=== PATIENT | male | born 1940 | race Caucasian/White ===

== ENCOUNTER 2022-06-19 16:45 | Inpatient (IN) | payer MEDICARE, OTHER ==
[~2022-06-19] VITALS: Ht 182.9 cm; Wt 106.0 kg
[2022-06-19] MEDS: HEPARIN SOD,PORK IN 0.45% NACL 250 ML IV SCH (00:05)
[2022-06-19 17:30] VITALS: BP 162/97
[2022-06-19] MEDS ORDERED: VALS160T2 PO (17:30)
[2022-06-19 18:00] VITALS: BP 168/91
[2022-06-19] MEDS ORDERED: heparin 10,000 units/1 ML INJ IV ONE (18:35)
[2022-06-19] MEDS ORDERED: amiodarone 150mg/dext, iso-os 100 ML IV ONE (18:35)
[2022-06-19] MEDS ORDERED: heparin 10,000 units/1 ML INJ IV PRN (18:35)
[2022-06-19] MEDS ORDERED: potassium CL 10mEq/100ml bag 100 ML IV PRN (18:40)
[2022-06-19] MEDS ORDERED: POTASSIUM BICARB 20meq eff tab 20 MEQ TABLET.EFF PO PRN (18:40)
[2022-06-19] MEDS ORDERED: magnesium 4gm in 100ml NS 100 ML IV PRN (18:40)
[2022-06-19] MEDS ORDERED: bisacodyl 10mg suppository rectal RC PRN (18:40)
[2022-06-19] MEDS ORDERED: magnesium hydroxide 30ml (MOM) UD suspension PO PRN (18:40)
[2022-06-19] MEDS ORDERED: mag hydrox/Alum hydrox/simeth 30ml oral suspension PO PRN (18:40)
[2022-06-19] MEDS ORDERED: morphine 2 MG/ML inj. syringe IV PRN (18:40)
[2022-06-19] MEDS ORDERED: magnesium 2GM in 50ml NS 50 ML IV PRN (18:40)
[2022-06-19] MEDS ORDERED: magnesium Cl slow-release 64mg tablet PO PRN (18:40)
[2022-06-19] MEDS ORDERED: acetaminophen 650mg rectal suppository RC PRN (18:40)
[2022-06-19] MEDS ORDERED: PERFLUTREN PROTEIN-A MICROSPHR (Optison) 0.22 MG/ML 3ML VIAL IV ONE (18:40)
[2022-06-19] MEDS ORDERED: HYDROcodone/acetaminophen 5mg/325mg tablet PO PRN (18:40)
[2022-06-19] MEDS ORDERED: acetaminophen 325mg tablet PO PRN ×2 (18:40)
[2022-06-19] MEDS ORDERED: diphenhydrAMINE 25mg capsule PO PRN (18:40)
[2022-06-19] MEDS ORDERED: ondansetron/PF 4mg/2ml inj IV PRN (18:40)
--- NOTE | 2022-06-19 18:44 | NUR ---
Problems reprioritized. Patient report given, questions answered & plan of care reviewed with Pat RN, patient stable at transfer of care.
[2022-06-19] MEDS ORDERED: LATA2.5D14 EACHEYE (19:50)
[2022-06-19] MEDS ORDERED: OXYC1TAB17 PO (19:50)
[2022-06-19] MEDS ORDERED: FURO40TA4 PO (19:50)
[2022-06-19] MEDS ORDERED: METF-1203 (19:50)
[2022-06-19] MEDS ORDERED: DORZ10DR10 EACHEYE (19:50)
[2022-06-19] MEDS ORDERED: BRIM5DRO16 EACHEYE (19:50)
[2022-06-19] MEDS ORDERED: ATEN25TA72 PO (19:51)
[2022-06-19] MEDS ORDERED: ATEN50TA PO (19:52)
[2022-06-19] MEDS ORDERED: MINO10TA16 PO (19:53)
[2022-06-19] MEDS ORDERED: COLC0.6T72 PO (19:53)
[2022-06-19 20:00] VITALS: BP 108/47
[2022-06-19] MEDS: K and/or MAG REPLACEMENT MC SCH (20:00)
[2022-06-19] MEDS: docusate sod 100mg capsule PO SCH (20:00)
[2022-06-19 20:22] LABS: BASOPHILS # (AUTO) 0.1 X10'3 (0-0.2); BASOPHILS % (AUTO) 0.9 % (0-1); EOSINOPHILS # (AUTO) 0.2 X10'3 (0-0.9); HEMATOCRIT 38.3 % (42.0-52.0); HEMOGLOBIN 12.8 g/dl (14.0-17.9); LYMPHOCYTES # (AUTO) 3.2 X10'3 (1.1-4.8); LYMPHOCYTES % (AUTO) 31.4 % (21-51); MEAN CORPUSCULAR HEMOGLOBIN 28.2 PG (27.0-31.0); MEAN CORPUSCULAR HGB CONC 33.4 g/dL (33.0-36.5); MEAN CORPUSCULAR VOLUME 84.4 FL (78-98); MEAN PLATELET VOLUME 8.1 FL (7.4-10.4); MONOCYTES # (AUTO) 0.7 X10'3 (0-0.9); MONOCYTES % (AUTO) 7.1 % (2-12); NEUTROPHILS % (AUTO) 58.6 % (42-75); PLATELET COUNT 206 X10'3 (140-440); RED BLOOD COUNT 4.53 X10'6 (4.70-6.10); RED CELL DISTRIBUTION WIDTH 14.3 % (11.5-14.5); WHITE BLOOD COUNT 10.2 X10'3 (4.5-11.0)
[2022-06-19 20:44] LABS: APTT 27 SECONDS (22-32)
[2022-06-19 20:54] LABS: ALANINE AMINOTRANSFERASE 18 U/L (12-78); ALBUMIN 3.5 G/DL (3.4-5.0); ALBUMIN/GLOBULIN RATIO 0.9 (1.1-1.5); ALKALINE PHOSPHATASE 102 IU/L (46-116); ANION GAP 6 (8-16); ASPARTATE AMINO TRANSFERASE 15 U/L (10-37); BILIRUBIN,TOTAL 0.7 MG/DL (0.1-1.0); BLOOD UREA NITROGEN 23 MG/DL (7-18); CALCIUM 8.4 MG/DL (8.5-10.1); CHLORIDE 104 MMOL/L (99-107); CREATININE 1.28 MG/DL (0.60-1.10); GLUCOSE 154 MG/DL (70-104); PHOSPHORUS 2.7 MG/DL (2.3-4.5); POTASSIUM 3.8 MMOL/L (3.5-5.1); SODIUM 138 MMOL/L (135-145); TOTAL CARBON DIOXIDE 28.2 MMOL/L (24-32); TOTAL PROTEIN 7.4 G/DL (6.4-8.2); eGFR 54 ML/MIN
[2022-06-19 20:56] LABS: HEMOGLOBIN A1C 7.2 % (4.5-6.2)
[2022-06-19] MEDS: morphine 2 MG/ML inj. syringe IV PRN (21:05)
[2022-06-19] MEDS: HYDROcodone/acetaminophen 10/325mg tab PO PRN (21:12)
[2022-06-19] MEDS: furosemide 40mg/4ml inj IV SCH (21:29)
[2022-06-19] MEDS ORDERED: dextrose 50%-water 50ml dispensing syringe IV PRN ×2 (21:50)
[2022-06-19] MEDS ORDERED: MESSAGE TO PHARMACY PO ONE (21:50)
[2022-06-19] MEDS ORDERED: glucagon, human recombinant 1mg kit SUBCUT PRN (21:50)
[2022-06-19] MEDS ORDERED: DEXTROSE 15 GM of carb/4 tabs (each vial/BOTTLE has 4 tablets) PO PRN ×2 (21:50)
[2022-06-19] MEDS ORDERED: insulin Lispro (HumaLOG) vial - multi-dose SQ SCH (21:50)
[2022-06-20] VITALS (13 sets, daily range): BP systolic 134–161; BP diastolic 70–108
[2022-06-20] MEDS: amiodarone/D5 360MG/200ML BAG 200 ML IV SCH ×4 (00:33→12:47)
[2022-06-20 06:50] LABS: BASOPHILS # (AUTO) 0.1 X10'3 (0-0.2); BASOPHILS % (AUTO) 0.9 % (0-1); EOSINOPHILS # (AUTO) 0.2 X10'3 (0-0.9); HEMATOCRIT 36.8 % (42.0-52.0); HEMOGLOBIN 12.5 g/dl (14.0-17.9); LYMPHOCYTES % (AUTO) 30.1 % (21-51); MEAN CORPUSCULAR VOLUME 85.3 FL (78-98); MEAN PLATELET VOLUME 8.2 FL (7.4-10.4); MONOCYTES # (AUTO) 0.8 X10'3 (0-0.9); MONOCYTES % (AUTO) 8.4 % (2-12); NEUTROPHILS # (AUTO) 5.9 X10'3 (1.8-7.7); NEUTROPHILS % (AUTO) 58.6 % (42-75); PLATELET COUNT 207 X10'3 (140-440); RED BLOOD COUNT 4.32 X10'6 (4.70-6.10); RED CELL DISTRIBUTION WIDTH 14.5 % (11.5-14.5)
[2022-06-20 07:15] LABS: ALANINE AMINOTRANSFERASE 10 U/L (12-78); ALBUMIN 3.3 G/DL (3.4-5.0); ALBUMIN/GLOBULIN RATIO 0.8 (1.1-1.5); ALKALINE PHOSPHATASE 94 IU/L (46-116); ANION GAP 6 (8-16); ASPARTATE AMINO TRANSFERASE 16 U/L (10-37); BILIRUBIN,TOTAL 0.5 MG/DL (0.1-1.0); BLOOD UREA NITROGEN 22 MG/DL (7-18); BUN/CREATININE RATIO 17.6 (5.4-32.0); CHLORIDE 106 MMOL/L (99-107); CREATININE 1.25 MG/DL (0.60-1.10); GLUCOSE 120 MG/DL (70-104); POTASSIUM 3.6 MMOL/L (3.5-5.1); SODIUM 139 MMOL/L (135-145); TOTAL CARBON DIOXIDE 27.1 MMOL/L (24-32); TOTAL PROTEIN 7.2 G/DL (6.4-8.2); eGFR 55 ML/MIN
[2022-06-20 07:16] LABS: CHOL/HDL RATIO 4.2 (0.00-4.99); CHOLESTEROL 97 MG/DL (0-200); HDL CHOLESTEROL 23 MG/DL (35-60); LDL CHOLESTEROL 56 MG/DL (50-100); MAGNESIUM 1.9 MG/DL (1.5-2.4); PHOSPHORUS 3.1 MG/DL (2.3-4.5); TRIGLYCERIDES 107 MG/DL (20-135)
[2022-06-20] MEDS: HYDROcodone/acetaminophen 10/325mg tab PO PRN (07:28)
[2022-06-20] MEDS: K and/or MAG REPLACEMENT MC SCH ×2 (08:00→20:00)
[2022-06-20] MEDS: atenolol 50mg tablet PO SCH ×2 (08:00→20:00)
[2022-06-20] MEDS: docusate sod 100mg capsule PO SCH ×2 (08:00→21:08)
--- NOTE | 2022-06-20 08:32 | NUR ---
Per telephone with Dr Senior: k/mg replc 02/22; losartan add comment to hold for sbp less than 100; add mucomyst 600 BID first dose now; sodium bicarb 3 amp in 11/24 NS @ 100; PER pharmacy sod bicab only in D5W - will contact Doc to review order. Also, ok to resume all home meds; pt will be having a cardioversion and heart cath around 1200. Need 18g PIV in R AC. Will implement orders
--- NOTE | 2022-06-20 08:35 | NUR ---
Per Dr Senior - change hep gtt to 1000 units/hr
[2022-06-20] MEDS: sodium bicarbonate (8.4%) inj. 150 MEQ in sodium chloride 0.45% 1,000 ML IV SCH ×2 (08:45→20:15)
[2022-06-20] MEDS: brimonidine 0.2% 5 ML ophthalmic drops EACHEYE SCH ×2 (10:22→21:05)
[2022-06-20] MEDS: dorzolamide/timolol (Cosopt) ophthalmic drops 10ml bottle EACHEYE SCH ×2 (10:23→21:05)
[2022-06-20] MEDS: losartan 50mg tablet PO SCH (10:25)
[2022-06-20] MEDS: furosemide 40mg/4ml inj IV SCH ×2 (10:26→21:07)
[2022-06-20] MEDS: acetylcysteine 200 MG/ml 4ml vial PO SCH ×2 (10:34→21:06)
--- NOTE | 2022-06-20 11:27 | NUR ---
DM Consult: Pt hx T2DM A1C 7.2% appropriate given age. Written DM ed w/ RD contact information place in pt chart. Addendum: 06/20/22 at [address] Amended: Links added.
[2022-06-20] MEDS ORDERED: nitroGLYCERIN-Tridil 50MG/D5W 250 ML IV ONE (11:32)
[2022-06-20] MEDS ORDERED: fentaNYL/PF 50MCG/1 ML 2ML syringe ONE ×2 (11:33→11:36)
[2022-06-20] MEDS ORDERED: heparin 1,000unit/ml 10ml vial 10 ML ONE (11:33)
[2022-06-20] MEDS ORDERED: LIDOcaine 1% 30ml preserv. free vial ONE (11:33)
[2022-06-20] MEDS ORDERED: iohexol 350MG/ML 100ml bottle IV ONE (11:33)
[2022-06-20] MEDS ORDERED: verapamil 2.5 mg/ml inj IV ONE (11:33)
[2022-06-20] MEDS ORDERED: midazolam 1 mg/ML 2ml injection ONE ×2 (11:33→11:36)
[2022-06-20] MEDS ORDERED: LIDOcaine 1%/PF 5ML 10 MG/ML VIAL ONE (11:45)
[2022-06-20] MEDS ORDERED: amiodarone 150mg/dext, iso-os 0 ML IV ONE (13:08)
[2022-06-20] MEDS ORDERED: amiodarone 50MG/ML inj IV ONE (13:08)
[2022-06-20] MEDS ORDERED: ondansetron 4mg rapidly disintigrating tab PO PRN (14:00)
--- NOTE | 2022-06-20 14:23 | NUR ---
Patient came back from manager cardiac cath, 5 visitors in room.
--- NOTE | 2022-06-20 14:43 | NUR ---
Message: [phone]. Vlad Ozuna. Fam in room, would like to speak with you. Luna Copeland [phone] Paged Dr Cagle Transaction number: [phone]
[2022-06-20] MEDS ORDERED: furosemide 40mg/4ml inj IV ONE (14:45)
[2022-06-20] MEDS: POTASSIUM BICARB 20meq eff tab 20 MEQ TABLET.EFF PO PRN ×2 (15:09→22:00)
[2022-06-20] MEDS: morphine 2 MG/ML inj. syringe IV PRN ×2 (15:59→21:50)
--- NOTE | 2022-06-20 18:30 | NUR ---
Problems reprioritized. Patient report given, questions answered & plan of care reviewed with Lorenzo RN & ANTONINA Kwan.
--- NOTE | 2022-06-20 18:47 | NUR ---
Patient in room PCU 3028. I have received report from nica SARKAR and had the opportunity to ask questions and assume patient care.
[2022-06-20] MEDS: HEPARIN SOD,PORK IN 0.45% NACL 250 ML IV SCH (19:35)
[2022-06-20] MEDS: apixaban 5mg tablet PO SCH (20:00)
[2022-06-20] MEDS: insulin glargine (Lantus) pen - multi-dose SQ SCH (21:00)
--- NOTE | 2022-06-20 21:00 | NUR ---
Eliquis PO not admin as IV Heparin cont. to infuse as ordered per Dr. Senior. Will start PO Eliquis this am as IV Heparin will be infused and completed.
[2022-06-20] MEDS: latanoprost 0.005% 2.5ml ophthalmic drops EACHEYE SCH (21:05)
[2022-06-20] MEDS: minoxidil 2.5mg tablet PO SCH (21:13)
[2022-06-21 02:00] VITALS: BP 98/58
[2022-06-21] MEDS: POTASSIUM BICARB 20meq eff tab 20 MEQ TABLET.EFF PO PRN (02:25)
[2022-06-21] MEDS: morphine 2 MG/ML inj. syringe IV PRN ×2 (03:15→15:11)
--- NOTE | 2022-06-21 04:20 | NUR ---
Patient right radial cath inserted area deflation was completed at 19:00 PM, Tegaderm dressing was applied on, it is dry, clean, intact, cath inserted site no S/S of bleeding/infection, will continue to closely monitor.
[2022-06-21 05:48] VITALS: BP 113/67
[2022-06-21 06:00] VITALS: BP 112/57
[2022-06-21 06:16] LABS: BASOPHILS # (AUTO) 0.1 X10'3 (0-0.2); BASOPHILS % (AUTO) 0.6 % (0-1); EOSINOPHILS # (AUTO) 0.1 X10'3 (0-0.9); EOSINOPHILS % (AUTO) 1.5 % (0-6); HEMATOCRIT 37.2 % (42.0-52.0); HEMOGLOBIN 12.5 g/dl (14.0-17.9); LYMPHOCYTES # (AUTO) 2.8 X10'3 (1.1-4.8); LYMPHOCYTES % (AUTO) 29.7 % (21-51); MEAN CORPUSCULAR HEMOGLOBIN 28.8 PG (27.0-31.0); MEAN CORPUSCULAR HGB CONC 33.6 g/dL (33.0-36.5); MEAN CORPUSCULAR VOLUME 85.7 FL (78-98); MEAN PLATELET VOLUME 8.4 FL (7.4-10.4); MONOCYTES # (AUTO) 0.7 X10'3 (0-0.9); MONOCYTES % (AUTO) 7.6 % (2-12); NEUTROPHILS # (AUTO) 5.8 X10'3 (1.8-7.7); NEUTROPHILS % (AUTO) 60.6 % (42-75); PLATELET COUNT 208 X10'3 (140-440); RED BLOOD COUNT 4.34 X10'6 (4.70-6.10); RED CELL DISTRIBUTION WIDTH 14.6 % (11.5-14.5); WHITE BLOOD COUNT 9.6 X10'3 (4.5-11.0)
[2022-06-21 06:28] LABS: ALANINE AMINOTRANSFERASE 11 U/L (12-78); ALBUMIN 3.2 G/DL (3.4-5.0); ALBUMIN/GLOBULIN RATIO 0.8 (1.1-1.5); ALKALINE PHOSPHATASE 96 IU/L (46-116); ANION GAP 8 (8-16); ASPARTATE AMINO TRANSFERASE 13 U/L (10-37); BILIRUBIN,TOTAL 0.8 MG/DL (0.1-1.0); BLOOD UREA NITROGEN 23 MG/DL (7-18); BUN/CREATININE RATIO 19.5 (5.4-32.0); CALCIUM 8.3 MG/DL (8.5-10.1); CHLORIDE 104 MMOL/L (99-107); CREATININE 1.18 MG/DL (0.60-1.10); GLUCOSE 121 MG/DL (70-104); MAGNESIUM 1.9 MG/DL (1.5-2.4); PHOSPHORUS 2.5 MG/DL (2.3-4.5); POTASSIUM 3.9 MMOL/L (3.5-5.1); SODIUM 142 MMOL/L (135-145); TOTAL PROTEIN 7.2 G/DL (6.4-8.2); eGFR 59 ML/MIN
--- NOTE | 2022-06-21 06:54 | NUR ---
Problems reprioritized. Patient report given, questions answered & plan of care reviewed with Althea SARKAR.
[2022-06-21] MEDS: K and/or MAG REPLACEMENT MC SCH ×2 (08:00→20:00)
[2022-06-21] MEDS: acetylcysteine 200 MG/ml 4ml vial PO SCH ×2 (08:00→21:31)
[2022-06-21] MEDS: docusate sod 100mg capsule PO SCH ×2 (08:00→21:30)
[2022-06-21] MEDS: furosemide 40mg/4ml inj IV SCH ×2 (09:03→21:29)
[2022-06-21] MEDS: apixaban 5mg tablet PO SCH ×2 (09:03→21:34)
[2022-06-21] MEDS: losartan 50mg tablet PO SCH (09:04)
[2022-06-21] MEDS: atenolol 50mg tablet PO SCH ×2 (09:15→21:33)
[2022-06-21] MEDS ORDERED: potassium Cl 20 mEq SR tablet PO STA (09:43)
[2022-06-21] MEDS ORDERED: furosemide 40mg/4ml inj IV ONE (09:45)
[2022-06-21] MEDS: minoxidil 2.5mg tablet PO SCH ×2 (10:34→21:34)
[2022-06-21] MEDS: brimonidine 0.2% 5 ML ophthalmic drops EACHEYE SCH ×2 (10:36→21:28)
[2022-06-21] MEDS: dorzolamide/timolol (Cosopt) ophthalmic drops 10ml bottle EACHEYE SCH ×2 (10:37→21:28)
[2022-06-21 11:00] VITALS: BP 119/73
[2022-06-21] MEDS ORDERED: triamcinolone acetonide 40mg/ml inj IM ONE (11:30)
[2022-06-21] MEDS: colchicine 0.6mg tablet PO PRN ×2 (12:44→21:30)
[2022-06-21 18:00] VITALS: BP 115/61
--- NOTE | 2022-06-21 18:15 | NUR ---
Got report from LIAM Oh RN, patient is lying in bed without uncomfortable, call light is on reach.
--- NOTE | 2022-06-21 18:58 | NUR ---
Patient in room PCU 3028. I have received report from Althea SARKAR and had the opportunity to ask questions and assume patient care.
[2022-06-21] MEDS: insulin glargine (Lantus) pen - multi-dose SQ SCH (21:00)
[2022-06-21] MEDS: latanoprost 0.005% 2.5ml ophthalmic drops EACHEYE SCH (21:28)
[2022-06-21] MEDS: HYDROcodone/acetaminophen 10/325mg tab PO PRN (21:45)
[2022-06-21 22:00] VITALS: BP 130/79
[2022-06-22] MEDS: morphine 2 MG/ML inj. syringe IV PRN ×2 (00:29→10:36)
[2022-06-22 02:00] VITALS: BP 94/56
[2022-06-22 06:00] VITALS: BP 141/82
[2022-06-22 06:52] LABS: BASOPHILS # (AUTO) 0.1 X10'3 (0-0.2); BASOPHILS % (AUTO) 0.7 % (0-1); EOSINOPHILS # (AUTO) 0.1 X10'3 (0-0.9); EOSINOPHILS % (AUTO) 1.5 % (0-6); HEMATOCRIT 40.4 % (42.0-52.0); HEMOGLOBIN 13.6 g/dl (14.0-17.9); LYMPHOCYTES # (AUTO) 2.5 X10'3 (1.1-4.8); MEAN CORPUSCULAR HEMOGLOBIN 28.8 PG (27.0-31.0); MEAN CORPUSCULAR HGB CONC 33.6 g/dL (33.0-36.5); MEAN CORPUSCULAR VOLUME 85.6 FL (78-98); MEAN PLATELET VOLUME 8.5 FL (7.4-10.4); MONOCYTES # (AUTO) 0.7 X10'3 (0-0.9); MONOCYTES % (AUTO) 7.5 % (2-12); NEUTROPHILS % (AUTO) 63.3 % (42-75); PLATELET COUNT 229 X10'3 (140-440); RED BLOOD COUNT 4.72 X10'6 (4.70-6.10); RED CELL DISTRIBUTION WIDTH 14.4 % (11.5-14.5); WHITE BLOOD COUNT 9.4 X10'3 (4.5-11.0)
--- NOTE | 2022-06-22 07:02 | NUR ---
Problems reprioritized. Patient report given, questions answered & plan of care reviewed with Althea SARKAR.
[2022-06-22 07:09] LABS: ALANINE AMINOTRANSFERASE 11 U/L (12-78); ALBUMIN 3.5 G/DL (3.4-5.0); ALBUMIN/GLOBULIN RATIO 0.8 (1.1-1.5); ALKALINE PHOSPHATASE 105 IU/L (46-116); ANION GAP 10 (8-16); ASPARTATE AMINO TRANSFERASE 14 U/L (10-37); BILIRUBIN,TOTAL 0.8 MG/DL (0.1-1.0); BLOOD UREA NITROGEN 19 MG/DL (7-18); BUN/CREATININE RATIO 17.1 (5.4-32.0); CHLORIDE 102 MMOL/L (99-107); CREATININE 1.11 MG/DL (0.60-1.10); GLUCOSE 131 MG/DL (70-104); MAGNESIUM 2.1 MG/DL (1.5-2.4); PHOSPHORUS 3.1 MG/DL (2.3-4.5); POTASSIUM 4.1 MMOL/L (3.5-5.1); SODIUM 141 MMOL/L (135-145); TOTAL CARBON DIOXIDE 29.3 MMOL/L (24-32); TOTAL PROTEIN 7.8 G/DL (6.4-8.2); eGFR 64 ML/MIN
[2022-06-22] MEDS: apixaban 5mg tablet PO SCH (08:55)
[2022-06-22] MEDS: losartan 50mg tablet PO SCH (08:56)
[2022-06-22] MEDS: atenolol 50mg tablet PO SCH (08:59)
[2022-06-22] MEDS: furosemide 40mg/4ml inj IV SCH (09:55)
[2022-06-22] MEDS: brimonidine 0.2% 5 ML ophthalmic drops EACHEYE SCH (09:55)
[2022-06-22] MEDS: dorzolamide/timolol (Cosopt) ophthalmic drops 10ml bottle EACHEYE SCH (09:55)
[2022-06-22 11:00] VITALS: BP 112/62
[2022-06-22] MEDS ORDERED: APIX5TAB3 PO (13:38)
[2022-06-22] MEDS ORDERED: ZAR2.5T PO (13:38)
[2022-06-22] MEDS ORDERED: FURO-150 PO (13:40)
[2022-06-23 06:17] LABS: ISTAT Hct MIX 38 %PCV (42-52); ISTAT O2 SATURATION MIX VENOUS 53 % (60-80); ISTAT SOURCE BLNK
[2022-06-23 06:17] LABS: ISTAT HGB ART 12.6 g/dl (14.0-18.0); ISTAT Hct ART 37 %PCV (42-52); ISTAT O2 SATURATION ARTERIAL 96 % (95-98); ISTAT SOURCE BLNK
== END 2022-06-22 14:58 | disposition home or self-care (01) | DRG 286 ==
LOC: PCU 3S 16:45
PROVIDERS: ADMIT Internal Medicine Cardiovascular Disease; ATTEND Internal Medicine Cardiovascular Disease
PROC: 4A023N8 Measurement of Cardiac Sampling and Pressure, Bilateral, Percutaneous Approach (ICD-10-PCS; principal; 2022-06-20)
PROC: B24CZZ4 Ultrasonography of Pericardium, Transesophageal (ICD-10-PCS; 2022-06-20)
PROC: 5A2204Z Restoration of Cardiac Rhythm, Single (ICD-10-PCS; 2022-06-20)
PROC: B2111ZZ Fluoroscopy of Multiple Coronary Arteries using Low Osmolar Contrast (ICD-10-PCS; 2022-06-20)
PROC: B2151ZZ Fluoroscopy of Left Heart using Low Osmolar Contrast (ICD-10-PCS; 2022-06-20)
DX: I13.0 Hypertensive heart and chronic kidney disease with heart failure and stage 1 through stage 4 chronic kidney disease, or unspecified chronic kidney disease (principal); I50.33 Acute on chronic diastolic (congestive) heart failure; N17.9 Acute kidney failure, unspecified; I48.92 Unspecified atrial flutter; I48.0 Paroxysmal atrial fibrillation; I25.10 Atherosclerotic heart disease of native coronary artery without angina pectoris; J44.9 Chronic obstructive pulmonary disease, unspecified; E11.22 Type 2 diabetes mellitus with diabetic chronic kidney disease; E78.5 Hyperlipidemia, unspecified; M19.90 Unspecified osteoarthritis, unspecified site; I08.1 Rheumatic disorders of both mitral and tricuspid valves; R00.1 Bradycardia, unspecified; R14.0 Abdominal distension (gaseous); G47.33 Obstructive sleep apnea (adult) (pediatric); I27.29 Other secondary pulmonary hypertension; I27.81 Cor pulmonale (chronic); M10.9 Gout, unspecified; N18.9 Chronic kidney disease, unspecified; Z80.3 Family history of malignant neoplasm of breast; Z82.0 Family history of epilepsy and other diseases of the nervous system; Z87.891 Personal history of nicotine dependence; Z86.79 Personal history of other diseases of the circulatory system; Z90.49 Acquired absence of other specified parts of digestive tract; Z88.5 Allergy status to narcotic agent; Z88.8 Allergy status to other drugs, medicaments and biological substances; Z79.899 Other long term (current) drug therapy
CPT/HCPCS: 36415; 76937; 80053; 80061; 82803; 82948; 83036; 83735; 83880; 84100; 84443; 84484; 85014; 85025; 85610; 85730; 92960; 93306; 93312; 93460; 93971; 97116; 97161; 97530; 99152; 99153; A4615; A4620; A5120; A6258; C1751; C1769; C1894; G0378; J0282; J1644; J1815; J1940; J2250; J2270; J3010; J3301; J3490; Q9967

== ENCOUNTER 2025-03-28 11:24 | Inpatient (IN) | payer MEDICARE, OTHER ==
[~2025-03-28] VITALS: Ht 365.8 cm; Wt 90.9 kg
[~2025-03-28 11:24] MED LIST: APIX5TAB3 PO; ATEN50TA PO; BRIM5DRO6 EACHEYE; COLC0.6T72 PO; DORZ10DR10 EACHEYE; LATA2.5D14 EACHEYE; METF-1203; MINO10TA16 PO; OXYC1TAB17 PO; VALS160T2 PO; ZAR2.5T PO
--- NOTE | 2025-03-28 11:57 | ELECTROCARDIOGRAPH REPORT ---
[facility] Test Date: 2025-03-28 Test Time: 11:28:40 Pat Name: LISA RAMOS Department: EMERGENCY ROOM Room: [place] [address] Gender: M Tailor Fitter: : 1940 Requested By: LONG ARENAS Order Number: [id number] Reading MD: Dr. Gabriel Fitzgerald Measurements Intervals [place] Rate: 94 P: 0 OK: 0 QRS: 84 QRSD: 117 T: 76 QT: 407 QTc: 510 Interpretive Statements Atrial fibrillation Incomplete right bundle branch block Borderline ST depression, lateral leads Electronically Signed On 03-29-2025 15:45:[address] Gabriel Fitzgerald Please click the below link to view image of tracing.
[2025-03-28 12:10] LABS: BASOPHILS % (AUTO) 0.2 % (0-1); EOSINOPHILS # (AUTO) 0.3 X10'3 (0-0.9); HEMATOCRIT 47.8 % (42.0-52.0); LYMPHOCYTES # (AUTO) 4.8 X10'3 (1.1-4.8); LYMPHOCYTES % (AUTO) 36.8 % (21-51); MEAN CORPUSCULAR HEMOGLOBIN 29.4 PG (27.0-31.0); MEAN CORPUSCULAR HGB CONC 33.5 g/dL (33.0-36.5); MEAN CORPUSCULAR VOLUME 87.8 FL (78-98); MONOCYTES # (AUTO) 0.9 X10'3 (0-0.9); MONOCYTES % (AUTO) 6.7 % (2-12); NEUTROPHILS % (AUTO) 54.3 % (42-75); PLATELET COUNT 305 X10'3 (140-440); RED BLOOD COUNT 5.45 X10'6 (4.70-6.10); RED CELL DISTRIBUTION WIDTH 14.2 % (11.5-14.5); WHITE BLOOD COUNT 12.9 X10'3 (4.5-11.0)
--- NOTE | 2025-03-28 12:24 | RADIOLOGY REPORT ---
EXAM: DI CHEST,SINGLE VIEW HISTORY: CP COMPARISON: None TECHNIQUE: PA upright view of the chest was performed. FINDINGS: No pneumothorax or consolidative infiltrates. There is mild interstitial prominence, greater centrall y. The heart is enlarged. The aortic arch is calcific. There is mild relative elevation of the right hemidiaphragm. IMPRESSION: Cardiomegaly with mild interstitial prominence which may be due to Reactive airways disease or mild C HF.
[2025-03-28 12:41] LABS: ALANINE AMINOTRANSFERASE 58 U/L (12-78); ALBUMIN 3.6 G/DL (3.4-5.0); ALBUMIN/GLOBULIN RATIO 0.9 (1.1-1.5); ALKALINE PHOSPHATASE 126 IU/L (46-116); ANION GAP 5 (8-16); ASPARTATE AMINO TRANSFERASE 59 U/L (10-37); BLOOD UREA NITROGEN 26 MG/DL (7-18); BUN/CREATININE RATIO 25.5 (10.0-20.0); CALCIUM 8.7 MG/DL (8.5-10.1); CHLORIDE 103 MMOL/L (99-107); CREATININE 1.02 MG/DL (0.60-1.10); GLUCOSE 148 MG/DL (70-104); POTASSIUM 3.5 MMOL/L (3.5-5.1); SODIUM 143 MMOL/L (135-145); TOTAL PROTEIN 7.8 G/DL (6.4-8.2); eCRCL 59 ML/MIN; eGFR 70 ML/MIN
[2025-03-28 12:48] LABS: PRO BRAIN NATRIURETIC PEPTIDE 11091 PG/ML (0-450)
--- NOTE | 2025-03-28 14:32 | Physician Documentation ---
History of Present Illness ~ Chief Complaint: Shortness of Breath Stated Complaint: CHEST PRESSURE/DIFF BREATHING/COUGH Time Seen by MD: 13:10 Mode of Arrival: Ambulatory HPI This is a 84-year-old gentleman who was sent to us from Dr. Óscar [facility] of [facility] after he failed a stress test for further evaluation. Evidently the gentleman suffers from exertional or positional shortness a breath. Not accompanied by any chest pain but does report chest pressure. Has a known CHF. Compliant with his meds. He is scheduled for a cardiac catheterization sometime this month. Reports cough. Denies any other symptoms. No concern for tobacco, alcohol or illicit substances use Medication Reconciliation Allergies: Coded Allergies: buprenorphine (Verified Allergy, Severe, anaphylaxis, 03/28/25) gabapentin (Verified Allergy, Mild, 03/28/25) sore throat spironolactone (Verified Adverse Reaction, Unknown, 03/28/25) Scheduled Apixaban (Eliquis), 5 MG PO BID Atenolol (Atenolol), 1 TAB PO BID, (Reported) Brimonidine Tartrate* (Alphagan*), 1 DROP EACHEYE BID, (Reported) Dorzolamide HCl/Timolol Maleat (Dorzolamide-Timolol Eye Drops), 1 DROP EACHEYE BID, (Reported) Latanoprost (Latanoprost), 1 DROP EACHEYE HS, (Reported) Metformin HCl (Metformin HCl), 1 TAB BID, (Reported) Metolazone (ZAROXOLYN tablet), 1 TAB PO MTH Minoxidil* (Loniten*), 1 TAB PO Q12H, (Reported) Valsartan* (Diovan*), 1 TAB PO DAILY, (Reported) Scheduled PRN Colchicine (Colchicine), 2 TAB PO BID PRN for GOUT, (Reported) Oxycodone Hcl/Acetaminophen (Oxycodone-Acetaminophen 10-325), 1 TAB PO Q6H PRN for pain, (Reported) Past Medical History Patient History: FH: cancer Review of Systems ROS 10 point review of systems was performed and unless noted above in HPI is negative for acute process/complaint. Physical Exam Vital Signs: Temperature: 98.0, Heart Rate: 100, Respiratory Rate: 15, BP: 123/81, Pulse Oximetry: 92, Weight: 90.910 Oxygen Flow Rate: 0 Physical Exam GENERAL: Awake, alert, oriented, GCS 15, no apparent distress, non-toxic appearing, answers questions, follows commands appropriately. HEENT: Atraumatic, normocephalic, pupils equal, extraocular muscles intact, sclerae anicteric, mucus membranes moist, oropharynx is clear, no stridor. NECK: supple, full active range of motion, trachea midline, no thyromegaly, no lymphadenopathy, no JVD. CARDIOVASCULAR: regular rate/rhythm, no murmurs/gallops/rubs, Pulses are 2+ in all extremities and symmetric. Capillary refill less than 2 seconds. PULMONARY: Nonlabored, good air movement ,no respiratory distress, speaking in full sentences, coarse breath sounds bilaterally, no wheezing, no ronchi, bilateral rales, no accessory muscle use. GASTROINTESTINAL: Soft, non-tender, non-distended, normal active bowel sounds, no organomegaly, no pulsatile masses, no CVA tenderness. NEUROLOGIC: Lucid with normal mental status. Normal facial symmetry. Moves all extremities symmetrically and with purpose. No truncal ataxia. Speech is fluid without evidence of dysarthria or aphasia, no focal deficits appreciated. MUSCULOSKELETAL: There is full range of motion of all extremities. There is no joint pain or joint swelling or joint erythema. There is no muscle pain or tenderness or swelling. EXTREMITIES: warm, well-perfused, no cyanosis, no clubbing, no edema, no acute deformities. Skin: warm, dry, no rashes or lesions, no jaundice, no petechiae orpurpura. No ecchymosis. PSYCHIATRIC: Normal affect, normal insight, normal concentration. Focused exam: [] Progress Results/Orders Results/Orders Orders - LONG ARENAS DO Chest,Single View (03/28/25 11:55) Monitor (03/28/25 11:55) Saline Lock (03/28/25 11:55) Oxygen (03/28/25 11:55) Hs Troponin I W Calculations (03/28/25 14:55) Completed Orders - LONG ARENAS DO Chest,Single View (03/28/25 11:55) Cbc/Diff (03/28/25 11:55) PBNP (03/28/25 11:55) Electrocardiogram (03/28/25 11:55) CMP (03/28/25 11:55) Hs Troponin I W Calculations (03/28/25 11:55) Hs Troponin I W Calculations (03/28/25 13:55) Vital Signs 03/28/25 03/28/25 03/28/25 11:50 12:37 12:54 Temp 98.0 Pulse 111 100 Resp 16 16 15 B/P (MAP) 133/71 123/81 (95) Pulse Ox 94 92 O2 Flow Rate 0 Laboratory Tests Test 03/28/25 11:33 03/28/25 13:40 White Blood Count 12.9 H Red Blood Count 5.45 Hemoglobin 16.0 Hematocrit 47.8 Mean Corpuscular Volume 87.8 Mean Corpuscular Hemoglobin 29.4 Mean Corpuscular Hemoglobin Concent 33.5 Red Cell Distribution Width 14.2 Platelet Count 305 Mean Platelet Volume 8.0 Neutrophils (%) (Auto) 54.3 Lymphocytes (%) (Auto) 36.8 Monocytes (%) (Auto) 6.7 Eosinophils (%) (Auto) 2.0 Basophils (%) (Auto) 0.2 Neutrophils # (Auto) 7.0 Lymphocytes # (Auto) 4.8 Monocytes # (Auto) 0.9 Eosinophils # (Auto) 0.3 Basophils # (Auto) 0.0 CBC Comment Sodium Level 143 Potassium Level 3.5 Chloride Level 103 Carbon Dioxide Level 35.0 H Anion Gap 5 L Blood Urea Nitrogen 26 H Creatinine 1.02 Estimated GFR/1.73 m2 70 BUN/Creatinine Ratio 25.5 H Glucose Level 148 H Calcium Level 8.7 Total Bilirubin 1.0 Aspartate Amino Transf (AST/SGOT) 59 H Alanine Aminotransferase (ALT/SGPT) 58 Alkaline Phosphatase 126 H Troponin I High Sensitivity 41 36 Pro-B-Type Natriuretic Peptide 91402 H Total Protein 7.8 Albumin 3.6 Globulin 4.2 Albumin/Globulin Ratio 0.9 L Chemistry Comments Troponin I High Sens Percent Delta 12 Troponin I Hi Sens Absolute Change -5 EKG/XRAY/CT/US/VASC/MRI EKG : Additional Comment EKG was obtained and interpreted by myself showing atrial fibrillation, rate of 94, borderline QRS with a incomplete right bundle, prolonged QTC of 510, normal axis, multiple PVCs noted. No STEMI. Medical Decision Making Findings Facility Status: ED Holds, RME process The plan was discussed with the patient, who demonstrates clear understanding of the plan and is in agreement with the plan unless otherwise noted in the chart. All questions have been answered, all concerns were addressed unless otherwise documented. I was available throughout their ED stay for frequent reassessment and questions. Differential Diagnoses (considered and possible or likely): [Congestive heart failure exacerbation, ACS, pneumonia, occult bacteremia, unlikely to represent pneumothorax, PE has been considered but the gentleman is already anticoagulated] ??Differential Diagnoses (considered and unlikely, not requiring evaluation currently): [See above] MDM Data Please see [facility] for the following: Independent Historians and external Records Review. Historian: [Patient] Independent Historians: ?[Some information from Dr. Óscar Gray's office] Medication Management: [Reviewed medication list] Social History and determinants: [Reviewed] Please see the body of the note for the following: Any independent interpretations of ECG, imaging studies. All vitals signs/haemodynamics, ordered tests were independently reviewed and i nterpreted by myself. Nursing triage complaint and vitals reviewed, additional nursing notes were reviewed as available and I agree unless otherwise noted or documented in contradiction in the chart Vital Signs: Independently reviewed Labs: Independently interpreted Imaging: Independently interpreted Old Medical Records: Independently reviewed, see [facility] for relevant summary and information Pulse Oximetry: [95%] interpreted as [normal on room air] by me [Air Brake Adjuster: [Irregularly irregular with multiple PVCs. AFib.] reviewed and interpreted by me] Additionally notably showing: [He is hemodynamically stable. AFib noted.] Laboratory workup notable for minimal leukocytosis, intravascular depletion, significant CHF exacerbation. Chest x-ray consistent with CHF exacerbation. Tests considered but not ordered include: [Advanced imaging has been considerably does not appear to be necessary, any further cardiac workup can be done on an inpatient basis] Social Determinants of Health Impact: Patient was evaluated in [facility], or [facility] [place] to healthcare due to below par ratio of patient to medical providers. [] Comorbid Conditions Impacting Present Evaluation and Care/Treatment: [Multiple, including CHF] Management Discussions with other Healthcare Providers: [Hospitalist regarding admission] Treatment and Disposition Medication Management (Given or considered): []. See EMR for details Consideration for Hospitalization/Escalation/Deescalation of Care: Admission for observation has been considered, and appears to be necessary for further management of the gentleman has congestive heart failure. ?ED Course:?[No clinical deterioration] ?Shared decision making:?[] Code status:?FULL Please see the full Electronic Medical Record for full details of nursing documentation, medications list, other records of complete past medical history and conditions, vital signs, laboratory studies, and any radiologic study interpretations by radiologists. Portions of this note were completed using Branch[employer] dictation software and as a result there may exist minor errors in spelling. I have reviewed elements of past family and social history and agree as included in note. Departure Disposition: 09 ADMITTED INPATIENT Admitted to Inpatient Unit: to hospitalist Impression: Primary Impression: Acute exacerbation of congestive heart failure Additional Impression: Shortness of breath Condition: Stable Referrals: NO PRIMARY CARE PROVIDER (PCP) Education Educated: Patient, Family Educated regarding: diagnosis, treatment, prognosis Signature Scribe Signature: No scribe Attestation: This note accurately reflects clinical decisions, work performed by myself, DO DAGOBERTO Grace NICHOLAS M DO March 28, 2025 14:32
[2025-03-28] MEDS ORDERED: ondansetron/PF 4mg/2ml inj IV PRN (14:55)
[2025-03-28] MEDS ORDERED: furosemide 10 MG/1 ML 10ml inj IV SCH (14:55)
[2025-03-28] MEDS ORDERED: magnesium hydroxide 30ml (MOM) UD suspension PO PRN (14:55)
[2025-03-28] MEDS ORDERED: magnesium sulf-water 2g/50mL 50 ML IV PRN (14:55)
[2025-03-28] MEDS ORDERED: magnesium sulf-water 4G/100mL 100 ML IV PRN (14:55)
[2025-03-28] MEDS ORDERED: potassium Cl 40MEQ/1/2NS 520ml 520 ML IV PRN (14:55)
[2025-03-28] MEDS ORDERED: morphine 2 MG/ML inj. syringe IV PRN (14:55)
[2025-03-28] MEDS ORDERED: HYDROmorphone inj. 0.5 MG/0.5 ML DISP.SYRIN IV PRN (14:55)
[2025-03-28] MEDS ORDERED: magnesium Cl slow-release 64mg tablet PO PRN (14:55)
[2025-03-28] MEDS ORDERED: potassium Cl 20 mEq SR tablet PO PRN (14:55)
[2025-03-28] MEDS ORDERED: mag hydrox/Alum hydrox/simeth 30ml oral suspension PO PRN (14:55)
[2025-03-28] MEDS ORDERED: acetaminophen 325mg tablet PO PRN (14:55)
[2025-03-28] MEDS ORDERED: HYDROcodone/acetaminophen 5mg/325mg tablet PO PRN (14:55)
[2025-03-28 16:15] LABS: MAGNESIUM 2.2 MG/DL (1.5-2.4)
--- NOTE | 2025-03-28 16:22 | HISTORY AND PHYSICAL-Residence ---
History & Physical Providers to CC Resident Creating Document: TEMI JOHNSON, RES ~ History of Present Illness Reason for Admit\Complaint: Shortness of breath History of Present Illness This is a 84-year-old male with a history of atrial fibrillation, hypertension, diabetes, hyperlipidemia was brought to the ED after failing a stress test outpatient. According to the patient he was scheduled for a stress test by Dr. Citlaly Gray, but he was very short of breath that he could not take the stress test. Patient mentions that he has been short of breath since past few weeks on exertion. He also has a associated orthopnea, PND, cough and swelling in the legs. He was recently treated for cough with greenish sputum ( pneumonia) with antibiotics for seven days outpatient. Currently he does not have any sputum production. He denies any fever, chest pain, palpitations but does mention that his heart rate goes to 120s in 140s occasionally. He was cardioverted twice in the past six months apart but still reverted back to AFib. He is currently not using any blood thinners for his AFib because Eliquis is expensive. But he takes baby aspirin daily. PCP: Physician medical assistant prn at [facility] in [place] Crm Developer: Dr. Citlaly Gray Allergies: Coded Allergies: buprenorphine (Verified Allergy, Severe, anaphylaxis, 03/28/25) gabapentin (Verified Allergy, Mild, 03/28/25) sore throat spironolactone (Verified Adverse Reaction, Unknown, 03/28/25) Home Medications Home Medications Active ZAROXOLYN tablet (Metolazone) 2.5 Mg Tablet 1 Tab PO MTH Eliquis (Apixaban) 5 Mg Tablet 5 Mg PO BID Reported Colchicine 0.6 Mg Tablet 2 Tab PO BID PRN 30 Days Loniten* (Minoxidil) 10 Mg Tablet 1 Tab PO Q12H 30 Days Atenolol 50 Mg Tablet 1 Tab PO BID 30 Days Alphagan* (Brimonidine Tartrate) 5 Ml Bottle 1 Drop EACHEYE BID Metformin HCl 500 Mg Tablet 1 Tab BID Latanoprost 2.5 Ml Drops 1 Drop EACHEYE HS Dorzolamide-Timolol Eye Drops (Dorzolamide HCl/Timolol Maleat) 10 Ml Drops 1 Drop EACHEYE BID Oxycodone-Acetaminophen 10-325 (Oxycodone Hcl/Acetaminophen) 1 Each Tablet 1 Tab PO Q6H PRN Geoffvan* (Valsartan) 160 Mg Tablet 1 Tab PO DAILY 30 Days Past Medical History Past Medical History Pulmonary hypertension, atrial fibrillation, obstructive sleep apnea, on CPAP, AAA, 4.2 cm, history of coccidioidomycosis, hypertension, COPD, cor pulmonale, diabetes type 2, gout, DJD, hyperlipidemia. Past Surgical History Surgical History Comment Multiple back surgeries, cholecystectomy, cataract surgery, and hernia repair surgery in the past. Family History Family History: FH: cancer Past Social History Social History Comment He is an ex-smoker, quit 20 years ago, used to smoke half a pack a day, smoked for about 30 years. Denies alcohol. Denies any other recreational drug abuse. ROS ROS Reviewed and negative except for the pertinent positives in HPI Exam Vitals: Vital Signs Date Time Temp Pulse Resp B/P (MAP) Pulse Ox O2 Delivery O2 Flow Rate FiO2 03/28/25 12:54 15 03/28/25 12:37 100 92 0 03/28/25 11:50 98.0 General: VITAL SIGNS: Reviewed and stable. GENERAL: The patient is alert, oriented to self, place, person, in no distress at the time of my examination. HEENT: Head atraumatic, normocephalic. Eyes: PERRLA, EOMI. Nares patent. Ear: No discharge noted. NECK: Supple, no obvious masses noted. CARDIOVASCULAR: Irregular rhythm. Rate is slightly on the higher side. No murmurs. CHEST/RESPIRATORY: Trachea central. Bilateral minimal basal crepitations audible. No respiratory distress. No use of any accessory muscles of breathing. ABDOMEN: Soft, nontender, bowel sounds present. CENTRAL NERVOUS SYSTEM: Cranial nerves 2-12 are intact. No other focal neurological deficits. EXTREMITIES: 2+ pedal edema noted SKIN: Warm and dry. PSYCHIATRIC: Good affect. No depression. MUSCULOSKELETAL: No obvious joint swelling or tenderness noted. Diagnostic Data Last Recorded Lab Results: 03/28/25 1133 03/28/25 1133 Diagnostic Data: Laboratory Tests Test 03/28/25 15:28 Coagulation Comments Advance Care Planning Advanced Care plannin - 30 Minutes (I spent a total of 17 minutes on reviewing various resuscitative measures/ ACP with the patient at the time of admission. The patient has decided on a full code status) Additional Plan 1. [id number] congestive heart failure with exacerbation EKG shows atrial fibrillation, rate of 94, borderline QRS with a incomplete right bundle, prolonged QTC of 510, normal axis, multiple PVCs noted. No STEMI. Chest x-ray shows Cardiomegaly with mild interstitial prominence which may be due to Reactive airways disease [place] [address] and echocardiogram is pending. Follow up. Spoke with Mague who was Dr. Citlaly Gray medical assistant prn. She recommends dobutamine stress test after stabilizing the CHF. NPO after midnight. Serial troponins are 41, 36, 41. Follow up with Mague for possible cardiac catheterization, according to the patient he was scheduled for an angiogram on April 11. No cardiac catheterization for now per Mague. Started on IV Lasix b.i.d. 40 mg. Strict monitoring of I&O 2. Pulmonary hypertension. Follow up with the echocardiogram on RVSP. 3. History of atrial fibrillation Continue home medication beta-radha atenolol 50 mg. Started on Eliquis 5 mg b.i.d. 4. Obstructive sleep apnea on CPAP at night, will be continued in the hospital. 5. Hypertension. Continue home medications atenolol 50 mg p.o. daily and losartan 100 mg p.o. daily. Lipid panels ordered. Follow up. 6. Hyperlipidemia on atorvastatin 40 mg p.o. daily 7. Diabetes type 2, will be started on glycemic protocol. A1c ordered. Code Status: Full code DVT Prophylaxis: Heparin Analgesia/Sedation: Brant p.r.n. Lines/Tubes: PIV Gi Prophylaxis: None Nutrition: Sodium restricted diet, NPO after midnight PT: Yes Prognosis: Guarded Disposition: Admit to PCU with telemetry monitoring. Follow up with Cardiology. Pending stress test Temi Ash MD Internal Medicine Resident PGY-1 Date of Service: March 28, 2025 Billing Provider: CLAYTON MCKEON MD,TEMI ASH, RES March 28, 2025 16:22
[2025-03-28 16:30] LABS: APTT 25 SECONDS (22-32); INR 1.2 INR; PROTHROMBIN TIME 11.7 SECONDS (9.0-12.0)
[2025-03-28] MEDS ORDERED: metoprolol tartrate 1mg/ml inj IV PRN (16:30)
[2025-03-28] MEDS ORDERED: nitroGLYCERIN 0.4mg SUBLingual tab SL PRN (16:30)
[2025-03-28] MEDS ORDERED: aminophylline 500mg/20ml vial IV PRN (16:30)
[2025-03-28] MEDS ORDERED: losartan 50mg tablet PO SCH (16:35)
[2025-03-28] MEDS ORDERED: DEXTROSE 15 GM of carb/4 tabs (each vial/BOTTLE has 4 tablets) PO PRN ×2 (16:40)
[2025-03-28] MEDS ORDERED: glucagon, human recombinant 1mg kit SUBCUT PRN (16:40)
[2025-03-28] MEDS ORDERED: dextrose 50%-water 50ml dispensing syringe IV PRN ×2 (16:40)
[2025-03-28 16:47] LABS: HEMOGLOBIN A1C 7.4 % (4.5-6.2)
[2025-03-28] MEDS: INSULIN LISPRO 100 UNIT/ML INSULN.PEN MULTI-DOSE SQ SCH (17:00)
[2025-03-28 17:06] LABS: CHOL/HDL RATIO 4.3 (0.00-4.99); CHOLESTEROL 133 MG/DL (0-200); HDL CHOLESTEROL 31 MG/DL (35-60); LDL CHOLESTEROL 74 MG/DL (50-100); TRIGLYCERIDES 196 MG/DL (20-135)
[2025-03-28] MEDS ORDERED: FURO-150 PO (17:31)
[2025-03-28] MEDS ORDERED: ATEN-169 PO (17:31)
[2025-03-28 18:15] VITALS: BP 113/69; PULSE 72; RESP 18; TEMP 98.1; O2SAT 93
[2025-03-28 20:00] VITALS: RESP 12; O2SAT 95
[2025-03-28] MEDS ORDERED: heparin, porcine 5000 units/ml vial SQ SCH (20:00)
[2025-03-28] MEDS: K and/or MAG REPLACEMENT MC SCH (20:00)
[2025-03-28] MEDS: docusate sod 100mg capsule PO SCH (20:00)
[2025-03-28] MEDS: furosemide 40mg/4ml inj IV SCH (20:03)
[2025-03-28] MEDS: apixaban 5mg tablet PO SCH (20:07)
[2025-03-28] MEDS: losartan 50mg tablet PO SCH (20:08)
[2025-03-28 20:23] LABS: BILIRUBIN,URINE NEGATIVE (Neg); CLARITY,URINE CLEAR (Clear); COLOR,URINE YELLOW (Yellow); GLUCOSE, URINE NEGATIVE (Neg); KETONES,URINE NEGATIVE (Neg); LEUKOCYTE ESTERASE ,URINE NEGATIVE (Neg); NITRITES, URINE NEGATIVE (Neg); OCCULT BLOOD,URINE NEGATIVE (Neg); PH,URINE 6.5 (4.8-8.0); PROTEIN,URINE 100 mg/dl (Neg); UROBILINOGEN,URINE 0.2 E.U/dL (0.2-1.0)
[2025-03-28 20:31] LABS: UA COLLECTION TYPE URINAL
[2025-03-28 20:43] LABS: BACTERIA,URINE NONE SEEN /HPF (Neg); RBC,URINE 0-2 /HPF (0-2); SQUAMOUS EPITHELIAL CELL,UR NONE SEEN /LPF (FEW); WBC,URINE NONE SEEN /HPF (0-4)
--- NOTE | 2025-03-28 20:58 | CARDIOLOGY REPORT ---
APPROVED REPORT EXAM: Limited 2D, Doppler, and color-flow Echocardiogram. Patient Location: [facility] Indications CONGESTIVE HEART FAILURE ASSESS RIGHT HEART PRESSURES. PREVIOUS CONGESTIVE HEART FAILURE KNOWN PULMONARY HYPERTENSION (03/13/25 ECHO: RVSP 103mmHG) Stemmer Machine: Addison Gray MD Previous echo: 03/13/25 [facility] CVC EF: 55%; nlLV; mCLVH; "D" SHAPED LV; mRVE; modLAE; sevRAE; sevTR; mMR; RVSP 103; noPE 2D Dimensions RVDd 4.4 cm Ao Asc Diam.3.90 cm M-Mode Dimensions IVSd 1.37 (0.7-1.1cm) LVDd 3.39 (4.0-5.6cm) PWd 1.56 (0.7-1.1cm) IVSs 1.78 cm LVDs 2.06 (2.0-3.8cm) FS (%) 30 % PWs 1.65 cm LVEF(%) 55 (>50%) Tricuspid Valve TR P. Velocity 546 cm/s RAP ESTIMATE 20 mmHg TR Peak Gr. 119 mmHg RVSP 139 mmHg LEFT VENTRICLE Small LV size with mild concentric hypertrophy. Overall systolic function is mildly reduced. "D" flat tened IV septum/. LVEF is 50-55%. RIGHT VENTRICLE RV is moderately increased in size with reduced function. Critically elevated right heart pressures w ith an RVSP of 139 mmHg. ATRIA The left atrium size is normal. Right atrium is severely dilated. TRICUSPID VALVE TV appears structurally normal with moderate (3+) regurgitation. GREAT VESSELS Ascending aorta is midly dilated. IVC is dilated and collapses less than 50% with inspiration. PERICARDIUM Normal pericardium. ?Trivial focal effusion around RA without hemodynamic compromise. Conclusion Small LV size with mild concentric hypertrophy. Overall systolic function is mildly reduced. "D" fl attened IV septum. LVEF is 50-55%. RV is moderately increased in size with reduced function. Critically elevated right heart pressures with an RVSP of 139 mmHg. The left atrium size is normal. Right atrium is severely dilated. TV appears structurally normal with moderate (3+) regurgitation. Ascending aorta is midly dilated. Normal pericardium. ?Trivial focal effusion around RA without hemodynamic compromise.
[2025-03-28] MEDS: insulin glargine (Lantus) pen - multi-dose SQ SCH (21:00)
[2025-03-28] MEDS: HYDROcodone/acetaminophen 10/325mg tab PO PRN (21:24)
[2025-03-28 22:00] VITALS: BP 132/85; PULSE 95; RESP 18; TEMP 97.8; O2SAT 93
[2025-03-29] VITALS (18 sets, daily range): BP systolic 94–140; BP diastolic 54–83; PULSE 64–92; RESP 14–18; TEMP 97–98.4; O2SAT 95–100
[2025-03-29 03:24] LABS: BASOPHILS % (AUTO) 0.3 % (0-1); EOSINOPHILS # (AUTO) 0.2 X10'3 (0-0.9); HEMATOCRIT 44.6 % (42.0-52.0); HEMOGLOBIN 15.2 g/dl (14.0-17.9); LYMPHOCYTES # (AUTO) 4.2 X10'3 (1.1-4.8); LYMPHOCYTES % (AUTO) 34.5 % (21-51); MEAN CORPUSCULAR HEMOGLOBIN 29.4 PG (27.0-31.0); MEAN CORPUSCULAR VOLUME 86.4 FL (78-98); MEAN PLATELET VOLUME 7.9 FL (7.4-10.4); MONOCYTES % (AUTO) 7.9 % (2-12); NEUTROPHILS # (AUTO) 6.8 X10'3 (1.8-7.7); NEUTROPHILS % (AUTO) 55.3 % (42-75); PLATELET COUNT 267 X10'3 (140-440); RED BLOOD COUNT 5.16 X10'6 (4.70-6.10); RED CELL DISTRIBUTION WIDTH 14.6 % (11.5-14.5); WHITE BLOOD COUNT 12.2 X10'3 (4.5-11.0)
[2025-03-29 03:29] LABS: ALANINE AMINOTRANSFERASE 48 U/L (12-78); ALBUMIN 3.1 G/DL (3.4-5.0); ALBUMIN/GLOBULIN RATIO 0.9 (1.1-1.5); ALKALINE PHOSPHATASE 118 IU/L (46-116); ANION GAP 4 (8-16); ASPARTATE AMINO TRANSFERASE 37 U/L (10-37); BILIRUBIN,TOTAL 1.4 MG/DL (0.1-1.0); BLOOD UREA NITROGEN 24 MG/DL (7-18); BUN/CREATININE RATIO 25.5 (10.0-20.0); CALCIUM 8.1 MG/DL (8.5-10.1); CHLORIDE 106 MMOL/L (99-107); CHOL/HDL RATIO 4.1 (0.00-4.99); CHOLESTEROL 116 MG/DL (0-200); CREATININE 0.94 MG/DL (0.60-1.10); GLUCOSE 119 MG/DL (70-104); HDL CHOLESTEROL 28 MG/DL (35-60); LDL CHOLESTEROL 62 MG/DL (50-100); MAGNESIUM 1.9 MG/DL (1.5-2.4); POTASSIUM 3.2 MMOL/L (3.5-5.1); SODIUM 144 MMOL/L (135-145); TOTAL CARBON DIOXIDE 33.9 MMOL/L (24-32); TOTAL PROTEIN 6.5 G/DL (6.4-8.2); TRIGLYCERIDES 165 MG/DL (20-135); eCRCL 75 ML/MIN; eGFR 76 ML/MIN
[2025-03-29] MEDS: potassium Cl 20 mEq SR tablet PO PRN (08:12)
[2025-03-29] MEDS: atorvastatin 20mg tablet PO SCH (08:14)
[2025-03-29] MEDS: atenolol 50mg tablet PO SCH (08:14)
[2025-03-29] MEDS: regadenoson 0.4mg/5ml syringe IV PRN (10:22)
--- NOTE | 2025-03-29 12:40 | RADIOLOGY REPORT ---
Procedure: NM NM CHAIM SCAN Exam Date: 03/29/2025 09:49 AM Reason for study/Clinical History: CAD Comparison Study: None. Myocardial Perfusion Study with SPECT Technique: The patient received an intravenous injection of 7.9 mCi of technetium-99m sestamibi whil e at rest. After a short delay, SPECT tomographic images of the heart were obtained. The patient th en went to the stress lab where they received an intravenous infusion of 0.[address] andard protocol. 32.9 mCi of technetium-99m sestamibi was injected intravenously immediately after the start of the Adenosine infusion. Gated SPECT tomographic images of the heart were acquired and p rocessed. Findings: Fixed septal defect. Inferior wall attenuation versus fixed defect End-diastolic volume 81 cc. End systolic volume 35 cc. The left ventricular ejection fraction is 57 %. (normal greater than 50%) . There is septal hypokinesis. Impression: 1. Fixed septal defect. No reversible defect. 2. Septal hypokinesis 3. Cardiac EF 57 %.
[2025-03-29] MEDS ORDERED: ipratropium/albuterol 3ml nebule NEB PRN (13:30)
[2025-03-29] MEDS: methylPREDNISolone sod succ/PF 40mg inj. IV ONE (14:03)
[2025-03-29] MEDS ORDERED: iohexol 350MG/ML 100ml bottle IV ONE (15:54)
--- NOTE | 2025-03-29 16:25 | PROGRESS NOTE- Residence ---
Progress Note - Resident Providers to CC Resident Creating Document: CHRISTINE VU CC: CLAYTON MCKEON MD ~ Antibiotic Timeout Antibiotic Ordered?: No Subjective Patient was examined at bedside. He was sitting on the edge of the bed, reports improvement in breathing but still has some shortness of breath, denies chest pain, palpitations, lightheadedness, dizziness or any other subjective symptoms at this time. He also reports having a chronic productive cough Objective Vital Signs Date Time Temp Pulse Resp B/P (MAP) Pulse Ox O2 Delivery O2 Flow Rate FiO2 03/29/25 16:01 16 100 Nasal Cannula* 2 28 03/29/25 15:00 97.7 74 136/70 (92) Result Diagram: 03/29/25 0300 03/29/25 0300 General: awake, alert oriented to place, time, and person HEENT: No pallor present, no icterus, moist mucous membranes Neck: No masses and tenderness Resp: Slightly labored. Bilateral faint wheezing. No crackles or rhonchi Heart: Regular Rate and rhythm, normal S1 and S2 without murmur, rub or gallop Abdomen: Soft and non tender no organomegaly, no guarding and rigidity, bowel sounds present Neuro: No weakness in the upper and lower limb muscles, power of the muscles 5/5 bilateral upper and lower muscles, knee reflex present bilaterally. Cranial nerves intact Extremities: No cyanosis,clubbing or edema Skin: Warm and Dry. No lesions Coagulation Studies Laboratory Tests Test 03/28/25 15:28 Prothrombin Time 11.7 SECONDS (9.0-12.0) INR International Normalized Ratio 1.2 INR Activated Partial Thromboplast Time 25 SECONDS (22-32) Coagulation Comments Assessment Assessment This is a 84-year-old male with a history of atrial fibrillation, hypertension, diabetes, hyperlipidemia was brought to the ED after failing a stress test outpatient. Admitted for evaluation and treatment of acute on chronic heart failure and pulmonary hypertension. Plan Plan [id number] HFpEF Pulmonary hypertension Cor pulmonale Likely associated community-acquired pneumonia Pulmonary embolisms ruled out EKG shows atrial fibrillation, rate of 94, borderline QRS with a incomplete right bundle, prolonged QTC of 510, normal axis, multiple PVCs noted. No STEMI. Chest x-ray shows Cardiomegaly with mild interstitial prominence which may be due to Reactive airways disease [place] [address] Serial troponins are 41, 36, 41 Echocardiogram shows small LV size with mild concentric hypertrophy. Overall systolic function is mildly reduced. "D" flattened IV septum. LVEF is 50-55%. RV is moderately increased in size with reduced function. Critically elevated right heart pressures with an RVSP of 139 mmHg. Stress test performed today, negative for reversible ischemia. Does show a fixed defect CTA chest showed no pulmonary embolism. Did show right upper lobe consolidations Dr. Citlaly Gray on board. Appreciate recommendations Continue IV Lasix, decreased to 20 mg IV b.i.d. Strict I&Os In view of consolidations on CT along with elevated white count, will start Rocephin 2 g daily, Zithromax 500 mg daily Duonebs q 4 prn Solumedrol 125mg once. Then 60mg IV BID Atrial fibrillation, rate controlled Continue atenolol 50 mg, Eliquis 5 mg b.i.d. Obstructive sleep apnea Continue CPAP at night and when napping Hypertension Hyperlipidemia Continue home medications atenolol 50 mg p.o. daily and losartan 100 mg p.o. daily. LDL 68 Continue atorvastatin 40 mg p.o. daily Diabetes type 2 A1c 7.4 On insulin Lantus 18 units, and low-dose supplemental. Will adjust as necessary Code Status: Full code DVT Prophylaxis: Heparin Analgesia/Sedation: [place] p.r.n. Lines/Tubes: PIV Gi Prophylaxis: None Nutrition: Sodium restricted diet, NPO after midnight PT: Yes Prognosis: Guarded Disposition: Continue care in PCU. Continue recommendations per Cardiology Date of Service: March 29, 2025 Billing Provider: CLAYTON MCKEON MD, LEONARDO LUIS March 29, 2025 16:25
--- NOTE | 2025-03-29 16:47 | RADIOLOGY REPORT ---
EXAM: CT CTA CHEST PE W/ IV CONTRAST History: Shortness of breath Comparison Study: None TECHNIQUE: A digital health practice manager image was obtained. During the uneventful, intravenous administration of c ontrast material, multislice data acquisition was obtained through the chest. 3-D postprocessing is performed by technologist including MIP imaging Radiation Dose : CTDI vol 50.42 mGy, DLP 939.45 mGy*cm. Findings: Lungs: Right upper and lower lobe peripheral nodular consolidations. Pleura: Unremarkable Heart/Great vessels: No pericardial effusion. Cardiomegaly. No pulmonary embolism or aneurysm. Mediastinum: Multiple prominent mediastinal nodes. Soft tissues/Bones: Moderate to severe multilevel degenerative changes of the thoracic spine Cholecystectomy. Large left renal cyst. The partially visualized upper abdomen is within normal limit s. Impression: 1. No evidence of a pulmonary embolism or aneurysm. 2. Right upper and lower lobe peripheral nodular consolidations favored an infectious/inflammatory et iology. 3. Multiple prominent mediastinal nodes favored reactive.
[2025-03-29] MEDS: azithromycin/NS 500mg/250ml 250 ML IV SCH (17:55)
[2025-03-29] MEDS: CefTRIAXone 2gm/D5W 50ml BAG 50 ML IV SCH (17:55)
[2025-03-29] MEDS: furosemide 20 MG/2 ML vial IV SCH (20:28)
[2025-03-29] MEDS: INSULIN LISPRO 100 UNIT/ML INSULN.PEN MULTI-DOSE SQ ONE ×2 (21:00→21:04)
[2025-03-30] VITALS (8 sets, daily range): BP systolic 125–157; BP diastolic 75–93; PULSE 61–98; RESP 13–22; TEMP 97–97.8; O2SAT 95–98
[2025-03-30 06:10] LABS: BASOPHILS % (AUTO) 0.3 % (0-1); EOSINOPHILS % (AUTO) 0 % (0-6); HEMATOCRIT 48.3 % (42.0-52.0); HEMOGLOBIN 16.2 g/dl (14.0-17.9); LYMPHOCYTES % (AUTO) 35.4 % (21-51); MEAN CORPUSCULAR HEMOGLOBIN 29.5 PG (27.0-31.0); MEAN CORPUSCULAR HGB CONC 33.5 g/dL (33.0-36.5); MONOCYTES # (AUTO) 0.1 X10'3 (0-0.9); MONOCYTES % (AUTO) 1.4 % (2-12); NEUTROPHILS # (AUTO) 5.4 X10'3 (1.8-7.7); NEUTROPHILS % (AUTO) 62.9 % (42-75); PLATELET COUNT 260 X10'3 (140-440); RED BLOOD COUNT 5.49 X10'6 (4.70-6.10); RED CELL DISTRIBUTION WIDTH 14.5 % (11.5-14.5); WHITE BLOOD COUNT 8.6 X10'3 (4.5-11.0)
[2025-03-30 06:25] LABS: ALANINE AMINOTRANSFERASE 41 U/L (12-78); ALBUMIN 3.3 G/DL (3.4-5.0); ALBUMIN/GLOBULIN RATIO 0.8 (1.1-1.5); ALKALINE PHOSPHATASE 137 IU/L (46-116); ANION GAP 3 (8-16); ASPARTATE AMINO TRANSFERASE 33 U/L (10-37); BILIRUBIN,TOTAL 0.9 MG/DL (0.1-1.0); BLOOD UREA NITROGEN 25 MG/DL (7-18); CALCIUM 8.8 MG/DL (8.5-10.1); CHLORIDE 102 MMOL/L (99-107); GLUCOSE 201 MG/DL (70-104); MAGNESIUM 2.1 MG/DL (1.5-2.4); POTASSIUM 4.8 MMOL/L (3.5-5.1); SODIUM 141 MMOL/L (135-145); TOTAL PROTEIN 7.5 G/DL (6.4-8.2); eCRCL 71 ML/MIN; eGFR 71 ML/MIN
[2025-03-30] MEDS: methylPREDNISolone sod succ/PF 40mg inj. IV SCH (08:11)
[2025-03-30] MEDS: INSULIN LISPRO 100 UNIT/ML INSULN.PEN MULTI-DOSE SQ SCH (13:18)
--- NOTE | 2025-03-30 16:05 | CONSULTATION REPORT ---
History of Present Illness Providers to CC CC: MIKE GRAY MD ~ Reason for Admit\\Admit Dx: Cardiology consultation History of Present Illness This is an 84-year-old female with history of COPD, sleep apnea, atrial fibrillation status post ablation x2, diabetes mellitus, hyperlipidemia. He presents secondary to shortness for breath. He initially presented with increased shortness for breath for his nuclear stress test at Dr. Gray's office. Given his symptoms he was sent to the emergency department. He reports significant dyspnea on exertion which has been ongoing for years. He was seen by Dr. Casper about five years ago and told he has COPD and also "other things" and given five years to live. Echocardiogram demonstrates preserved LVEF at 50-55% with flattened, D shaped septum. RV is dilated with reduced function and RVSP estimated at 139 mmm Hg. Was able to undergo a Lexiscan stress test with fixed defect in the septal region. Allergies: Coded Allergies: buprenorphine (Verified Allergy, Severe, anaphylaxis, 03/28/25) gabapentin (Verified Allergy, Mild, 03/28/25) sore throat spironolactone (Verified Adverse Reaction, Unknown, 03/28/25) Home Medications Home Medications Active Reported Lasix* (Furosemide) 20 Mg Tablet 40 Mg PO DAILY 30 Days Tenormin (Atenolol) 50 Mg Tablet 25 Mg PO BID 30 Days Colchicine 0.6 Mg Tablet 2 Tab PO BID PRN 30 Days Loniten* (Minoxidil) 10 Mg Tablet 1 Tab PO Q12H 30 Days Metformin HCl 500 Mg Tablet 1 Tab BID Latanoprost 2.5 Ml Drops 1 Drop EACHEYE HS Dorzolamide-Timolol Eye Drops (Dorzolamide HCl/Timolol Maleat) 10 Ml Drops 1 Drop EACHEYE BID Oxycodone-Acetaminophen 10-325 (Oxycodone Hcl/Acetaminophen) 1 Each Tablet 1 Tab PO Q6H PRN Past Medical History Medical History Comment Suspected pulmonary hypertension group I vs III Hypertension Hyperlipidemia Atrial fibrillation, not on anticoagulation secondary to cost COPD iabetes mellitus type 2 with hemoglobin A1c 7.4 Gout Abdominal aortic aneurysm Past Surgical History Surgical History Comment Back surgeries Cholecystectomy Hernia repair Past Family History Family History: FH: cancer MOTHER FAMILY/OTHER, Name: sister, FAMILY/OTHER, Name: brother , FH: cancer MOTHER FAMILY/OTHER, Name: sister, FAMILY/OTHER, Name: brother , FH: cancer MOTHER FAMILY/OTHER, Name: sister, FAMILY/OTHER, Name: brother , Past Social History Social History Comment History of smoking but quit many years ago. No alcohol. Denies recreational drugs. Physical Exam Last Vital Signs Recorded: RN Vital Signs have been reviewed: Yes, Temperature: 97.8, Source: Oral, Heart Rate: 68, Respiratory Rate: 14, BP: 125/77, Pulse Oximetry: 96, Weight: 90.910 Physical Exam General: Awake, alert, oriented. No apparent distress Neck: Supple. Normal range of motion. No JVD Respiratory: Lungs are clear to auscultation bilaterally. No respiratory distress. Chest: Normal shape and size. No accessory muscle use. Cardiovascular: Irregularly irregular. Variable S1-S2. Gastrointestinal: Abdomen is soft. Nontender to palpation. Bowel sounds present. Extremities: Mild lower extremity edema. No cyanosis or clubbing. Neurologic: Alert and oriented x4. Nonfocal Psychiatric: Normal mood and affect. Skin: Normal color. Warm and dry. Review of Systems All Other Systems at this time: Reviewed and Negative ROS Patient complains of shortness for breath, dyspnea on exertion. No palpitations. No chest pain or pressure. Results EKG EKG Atrial fibrillation with PVCs noted. Rate of 94. Incomplete right bundle- branch block. Echocardiogram Echocardiogram Conclusion Small LV size with mild concentric hypertrophy. Overall systolic function is mildly reduced. "D" flattened IV septum. LVEF is 50-55%. RV is moderately increased in size with reduced function. Critically elevated right heart pressures with an RVSP of 139 mmHg. The left atrium size is normal. Right atrium is severely dilated. TV appears structurally normal with moderate (3+) regurgitation. Ascending aorta is midly dilated. Normal pericardium. ?Trivial focal effusion around RA without hemodynamic compromise. Dictated by:WILLIAM BECERRA MD Dictation date and time:03/28/252056 Electronically Signed by: WILLIAM BECERRA MD Date and Time: 03/28/252057 Cardiac Stress Test Cardiac Stress Test Procedure: JOANN MCCABEI SCAN Exam Date: 03/29/2025 09:49 AM Reason for study/Clinical History: CAD Comparison Study: None. Myocardial Perfusion Study with SPECT Technique: The patient received an intravenous injection of 7.9 mCi of technetium-99m sestamibi while at rest. After a short delay, SPECT tomographic images of the heart were obtained. The patient then went to the stress lab where they received an intravenous infusion of 0.4 mg Lexiscan utilizing standard protocol. 32.9 mCi of technetium-99m sestamibi was injected intravenously immediately after the start of the Adenosine infusion. Gated SPECT tomographic images of the heart were acquired and processed. Findings: Fixed septal defect. Inferior wall attenuation versus fixed defect End-diastolic volume 81 cc. End systolic volume 35 cc. The left ventricular ejection fraction is 57 %. (normal greater than 50%) . There is septal hypokinesis. Impression: 1. Fixed septal defect. No reversible defect. 2. Septal hypokinesis 3. Cardiac EF 57 %. Electronically Signed by:DESTINY LENZ MD Date & Time: 03/29/25 1237 Other Other EXAM: CT CTA CHEST PE W/ IV CONTRAST History: Shortness of breath Comparison Study: None TECHNIQUE: A digital hogshead dumper image was obtained. During the uneventful, intravenous administration of contrast material, multislice data acquisition was obtained through the chest. 3-D postprocessing is performed by technologist including MIP imaging Radiation Dose : CTDI vol 50.42 mGy, DLP 939.45 mGy*cm. Findings: Lungs: Right upper and lower lobe peripheral nodular consolidations. Pleura: Unremarkable Heart/Great vessels: No pericardial effusion. Cardiomegaly. No pulmonary embolism or aneurysm. Mediastinum: Multiple prominent mediastinal nodes. Soft tissues/Bones: Moderate to severe multilevel degenerative changes of the thoracic spine Cholecystectomy. Large left renal cyst. The partially visualized upper abdomen is within normal limits. Impression: 1. No evidence of a pulmonary embolism or aneurysm. 2. Right upper and lower lobe peripheral nodular consolidations favored an infectious/inflammatory etiology. 3. Multiple prominent mediastinal nodes favored reactive. Electronically Signed by:BESS TARIQ DO Date & Time: 03/29/25 2085 Diagram Lab Result Diagram: 03/30/25 0547 03/30/25 0544 Assessment/Plan Additional Plan This is an 84-year-old male who presented secondary to shortness for breath. The following is his problem list: Suspected pulmonary hypertension Suspect group three related to COPD however group one can not be excluded. Has plans for right heart catheterization for further evaluation April 11, 2025. --recommend continue aggressive diuresis. We will increase Lasix to 40 mg b.i.d.. --strict intake and output measurements Atrial fibrillation, rate controlled Not on oral anticoagulation secondary to cost. Chads Vasc 4 Options for oral anticoagulation versus warfarin reviewed. Patient [place] and is unable to test his INR for warfarin therapy. He is agreeable to restart Eliquis with prescription to [facility]. Pneumonia versus inflammatory process on CTA On azithromycin and ceftriaxone. Hospitalist services managing. COPD Receiving steroids and breathing treatments Hospitalist managing Diabetes mellitus type 2 Hemoglobin A1c 7.4 --diabetic diet. Insulin per sliding scale Hypertension Controlled on losartan Case discussed with Dr. Mike Becerra. Supervising MD Supervising Physician: YINA Chavarria NP March 30, 2025 16:05
[2025-03-30] MEDS: furosemide 20 MG/2 ML vial IV ONE (16:23)
--- NOTE | 2025-03-30 18:35 | PROGRESS NOTE- Residence ---
Progress Note - Resident Providers to CC Resident Creating Document: CHRISTINE VU CC: CLAYTON MCKEON MD ~ Antibiotic Timeout Antibiotic Ordered?: Yes Subjective Patient was examined at bedside. He states he is feeling much better today, with significant improvement of shortness of breath. He was able to walk with physical therapy today. Otherwise denies any fevers, chills, chest pain, palpitations or any other significant symptoms Objective Vital Signs Date Time Temp Pulse Resp B/P (MAP) Pulse Ox O2 Delivery O2 Flow Rate FiO2 03/30/25 11:00 97.8 68 14 125/77 (93) 96 Nasal Cannula 2.0 03/30/25 08:49 28 Result Diagram: 03/30/25 0547 03/30/25 0547 General: awake, alert oriented to place, time, and person HEENT: No pallor present, no icterus, moist mucous membranes Neck: No masses and tenderness Resp: Unlabored. Clear breath sounds bilaterally Heart: Regular Rate and rhythm, normal S1 and S2 without murmur, rub or gallop Abdomen: Soft and non tender no organomegaly, no guarding and rigidity, bowel sounds present Neuro: No weakness in the upper and lower limb muscles, power of the muscles 5/5 bilateral upper and lower muscles, knee reflex present bilaterally. Cranial nerves intact Extremities: No cyanosis,clubbing or edema Skin: Warm and Dry. No lesions Coagulation Studies Laboratory Tests Test 03/28/25 15:28 Prothrombin Time 11.7 SECONDS (9.0-12.0) INR International Normalized Ratio 1.2 INR Activated Partial Thromboplast Time 25 SECONDS (22-32) Coagulation Comments Assessment Assessment This is a 84-year-old male with a history of atrial fibrillation, hypertension, diabetes, hyperlipidemia was brought to the ED after failing a stress test outpatient. Admitted for evaluation and treatment of acute on chronic heart failure, pulmonary hypertension and suspected associated community-acquired pneumonia. Plan Plan [id number] HFpEF Severe pulmonary hypertension, suspected group 3 2/2 COPD Acute Cor pulmonale Likely associated community-acquired pneumonia Pulmonary embolism ruled out EKG shows atrial fibrillation, rate of 94, borderline QRS with a incomplete right bundle, prolonged QTC of 510, normal axis, multiple PVCs noted. No STEMI. Chest x-ray shows Cardiomegaly with mild interstitial prominence which may be due to Reactive airways disease [place] [address] Serial troponins are 41, 36, 41 White count normalized Echocardiogram shows small LV size with mild concentric hypertrophy. Overall systolic function is mildly reduced. "D" flattened IV septum. LVEF is 50-55%. RV is moderately increased in size with reduced function. Critically elevated right heart pressures with an RVSP of 139 mmHg. Stress test performed today, negative for reversible ischemia. Does show a fixed defect CTA chest showed no pulmonary embolism. Did show right upper lobe consolidations Dr. Hayden Chapa/Mague Noriega on board. Appreciate recommendations Continue Rocephin 2 g daily, Zithromax 500 mg daily, day 2 Continue Duonebs q 4 prn Continue 60mg IV BID Continue IV Lasix, increased to 40 mg b.i.d. per cardiology Strict I&Os Atrial fibrillation, rate controlled Continue atenolol 50 mg, Eliquis 5 mg b.i.d. Obstructive sleep apnea Continue CPAP at night and when napping Hypertension Hyperlipidemia Continue home medications atenolol 50 mg p.o. daily and losartan 100 mg p.o. daily. LDL 68 Continue atorvastatin 40 mg p.o. daily Diabetes type 2 A1c 7.4 On insulin Lantus 18 units, and low-dose supplemental. Will adjust as necessary Code Status: Full code DVT Prophylaxis: Heparin Analgesia/Sedation: [place] p.r.n. Lines/Tubes: PIV Gi Prophylaxis: None Nutrition: Heart healthy diet PT: Yes Prognosis: Guarded Disposition: Continue care in PCU. Continue recommendations per Cardiology. Possible discharge tomorrow Date of Service: March 30, 2025 Billing Provider: CLAYTON MCKEON MD, LEONARDO LUIS March 30, 2025 18:35
[2025-03-30] MEDS: furosemide 20 MG/2 ML vial IV SCH (19:20)
[2025-03-31 02:00] VITALS: BP 118/87; PULSE 64; RESP 20; TEMP 97.2; O2SAT 96
[2025-03-31 06:00] VITALS: BP 154/80; PULSE 72; RESP 18; TEMP 97.9; O2SAT 96
[2025-03-31 06:55] LABS: BASOPHILS % (AUTO) 0.1 % (0-1); EOSINOPHILS % (AUTO) 0 % (0-6); HEMATOCRIT 47.3 % (42.0-52.0); HEMOGLOBIN 15.9 g/dl (14.0-17.9); LYMPHOCYTES # (AUTO) 3.2 X10'3 (1.1-4.8); LYMPHOCYTES % (AUTO) 18.2 % (21-51); MEAN CORPUSCULAR HEMOGLOBIN 29.6 PG (27.0-31.0); MEAN CORPUSCULAR HGB CONC 33.5 g/dL (33.0-36.5); MEAN CORPUSCULAR VOLUME 88.4 FL (78-98); MEAN PLATELET VOLUME 8.6 FL (7.4-10.4); MONOCYTES # (AUTO) 0.3 X10'3 (0-0.9); MONOCYTES % (AUTO) 1.5 % (2-12); NEUTROPHILS # (AUTO) 14.3 X10'3 (1.8-7.7); NEUTROPHILS % (AUTO) 80.2 % (42-75); PLATELET COUNT 260 X10'3 (140-440); RED BLOOD COUNT 5.35 X10'6 (4.70-6.10); RED CELL DISTRIBUTION WIDTH 14.6 % (11.5-14.5); WHITE BLOOD COUNT 17.8 X10'3 (4.5-11.0)
[2025-03-31 07:05] LABS: ALANINE AMINOTRANSFERASE 44 U/L (12-78); ALBUMIN 3.4 G/DL (3.4-5.0); ALBUMIN/GLOBULIN RATIO 0.8 (1.1-1.5); ALKALINE PHOSPHATASE 128 IU/L (46-116); ANION GAP 4 (8-16); ASPARTATE AMINO TRANSFERASE 32 U/L (10-37); BILIRUBIN,TOTAL 0.8 MG/DL (0.1-1.0); BLOOD UREA NITROGEN 36 MG/DL (7-18); BUN/CREATININE RATIO 34.3 (10.0-20.0); CALCIUM 9.1 MG/DL (8.5-10.1); CHLORIDE 100 MMOL/L (99-107); CREATININE 1.05 MG/DL (0.60-1.10); GLUCOSE 190 MG/DL (70-104); MAGNESIUM 2.3 MG/DL (1.5-2.4); POTASSIUM 4.4 MMOL/L (3.5-5.1); SODIUM 141 MMOL/L (135-145); TOTAL CARBON DIOXIDE 36.7 MMOL/L (24-32); TOTAL PROTEIN 7.6 G/DL (6.4-8.2); eCRCL 67 ML/MIN; eGFR 67 ML/MIN
[2025-03-31] MEDS: methylPREDNISolone sod succ/PF 40mg inj. IV SCH (07:49)
[2025-03-31 07:50] VITALS: BP_SYST 154
[2025-03-31 08:26] VITALS: PULSE 82; RESP 18; O2SAT 96
[2025-03-31] MEDS ORDERED: CEFD300C3 PO (10:35)
[2025-03-31] MEDS ORDERED: LOSA50TA64 PO (10:35)
[2025-03-31] MEDS ORDERED: PRED10TA23 PO (10:35)
[2025-03-31] MEDS ORDERED: APIX5TAB3 PO (10:35)
[2025-03-31] MEDS ORDERED: ATOR20TA66 PO (10:35)
[2025-03-31] MEDS ORDERED: BUDE10.2 INH (12:38)
[2025-03-31] MEDS ORDERED: ALBU2.5V7 NEB (12:38)
--- NOTE | 2025-03-31 17:48 | DISCHARGE SUMMARY-Residence ---
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 Gray, Cardiology Complications: None Condition on DC: Stable New Medications: Albuterol Sulfate (Albuterol Sulfate) 2.5 Mg/3 Ml Vial.neb 1 VIAL NEB Q4HPRN PRN for wheezing, #150 ML 0 Refills Budesonide/Formoterol Fumarate (Symbicort 160-4.5 Mcg Inhaler) 160 Mcg-4.5 Mcg/Actuation Hfa.aer.ad 2 PUFFS INH Q12H for 30 Days, #10.2 GM 0 Refills Cefdinir* (Cefdinir*) 300 Mg Capsule 1 CAP PO Q12H for 8 Days, #16 CAP Prednisone (Prednisone) 10 Mg Tablet 0 PO DAILY, #42 TAB Take 4 tabs daily x4 days, then 3 daily x4 days 2 daily x4 days 1 daily x4 days 1/2 daily x4 days then STOP Apixaban (Eliquis) 5 Mg Tablet 5 MG PO BID for 30 Days, #60 TAB Atorvastatin Calcium (Atorvastatin Calcium) 20 Mg Tablet 40 MG PO DAILY for 30 Days, #30 TAB Losartan Potassium (Losartan Potassium) 50 Mg Tablet 100 MG PO DAILY@2000 for 30 Days, #30 TAB Continued Medications: Atenolol (Tenormin) 50 Mg Tablet 25 MG PO BID for 30 Days, #30 TAB Colchicine (Colchicine) 0.6 Mg Tablet 2 TAB PO BID PRN for GOUT for 30 Days, #30 TAB 0 Refills Dorzolamide HCl/Timolol Maleat (Dorzolamide-Timolol Eye Drops) 10 Ml Drops 1 DROP EACHEYE BID Furosemide* (Lasix*) 20 Mg Tablet 40 MG PO DAILY for 30 Days, #30 TAB Latanoprost (Latanoprost) 2.5 Ml Drops 1 DROP EACHEYE HS Metformin HCl (Metformin HCl) 500 Mg Tablet 1 TAB BID Minoxidil* (Loniten*) 10 Mg Tablet 1 TAB PO Q12H for 30 Days, #60 TAB Oxycodone Hcl/Acetaminophen (Oxycodone-Acetaminophen 10-325) 1 Each Tablet 1 TAB PO Q6H PRN for pain Discharge Summary: Reason was admitted with the following HPI: This is a 84-year-old male with a history of atrial fibrillation, hypertension, diabetes, hyperlipidemia was brought to the ED after failing a stress test outpatient. According to the patient he was scheduled for a stress test by Dr. Citlaly Gray, but he was very short of breath that he could not take the stress test. Patient mentions that he has been short of breath since past few weeks on exertion. He also has a associated orthopnea, PND, cough and swelling in the legs. He was recently treated for cough with greenish sputum ( pneumonia) with antibiotics for seven days outpatient. Currently he does not have any sputum production. He denies any fever, chest pain, palpitations but does mention that his heart rate goes to 120s in 140s occasionally. He was cardioverted twice in the past six months apart but still reverted back to AFib. He is currently not using any blood thinners for his AFib because Eliquis is expensive. But he takes baby aspirin daily. Hospital course: Patient was admitted with diagnosis of acute on chronic congestive heart failure and pulmonary hypertension. Patient was started on IV Lasix 40 along with strict monitoring of I's and O's. On hospital day 2, patient underwent a CTA of the thorax which ruled out pulmonary embolism, but did show some pulmonary consolidations, and in view of elevated white count, a diagnosis of community- acquired pneumonia was also established and patient was started on IV Rocephin and azithromycin. In view of history of COPD and physical exam findings patient was also started on IV steroids and breathing treatments. Patient had significant improvement of symptoms in the remaining of hospital stay. Today, patient was essentially asymptomatic with no significant shortness of breath. Patient will be discharged home with p.o. antibiotics, prednisone taper, inhalers as well as GDMT for heart failure. Patient is scheduled for cardiac catheterization on 04/11/2025. Laboratory Tests Test 03/29/25 20:44 03/29/25 23:40 03/30/25 05:47 03/30/25 06:58 Glucometer 418 mg/dl 290 mg/dl 201 mg/dl White Blood Count 8.6 X10'3 Red Blood Count 5.49 X10'6 Hemoglobin 16.2 g/dl Hematocrit 48.3 % Mean Corpuscular Volume 88.0 FL Mean Corpuscular Hemoglobin 29.5 PG Mean Corpuscular Hemoglobin Concent 33.5 g/dL Red Cell Distribution Width 14.5 % Platelet Count 260 X10'3 Mean Platelet Volume 8.0 FL Neutrophils (%) (Auto) 62.9 % Lymphocytes (%) (Auto) 35.4 % Monocytes (%) (Auto) 1.4 % Eosinophils (%) (Auto) 0 % Basophils (%) (Auto) 0.3 % Neutrophils # (Auto) 5.4 X10'3 Lymphocytes # (Auto) 3.0 X10'3 Monocytes # (Auto) 0.1 X10'3 Eosinophils # (Auto) 0.0 X10'3 Basophils # (Auto) 0.0 X10'3 CBC Comment Sodium Level 141 MMOL/L Potassium Level 4.8 MMOL/L Chloride Level 102 MMOL/L Carbon Dioxide Level 36.0 MMOL/L Anion Gap 3 Blood Urea Nitrogen 25 MG/DL Creatinine 1.00 MG/DL Estimated GFR/1.73 m2 71 ML/MIN BUN/Creatinine Ratio 25.0 Glucose Level 201 MG/DL Calcium Level 8.8 MG/DL Magnesium Level 2.1 MG/DL Total Bilirubin 0.9 MG/DL Aspartate Amino Transf (AST/SGOT) 33 U/L Alanine Aminotransferase (ALT/SGPT) 41 U/L Alkaline Phosphatase 137 IU/L Total Protein 7.5 G/DL Albumin 3.3 G/DL Globulin 4.2 G/DL Albumin/Globulin Ratio 0.8 Procalcitonin < 0.05 NG/ML Chemistry Comments Test 03/30/25 12:06 03/30/25 17:12 03/30/25 21:12 03/31/25 05:36 Glucometer 323 mg/dl 167 mg/dl 278 mg/dl White Blood Count 17.8 X10'3 Red Blood Count 5.35 X10'6 Hemoglobin 15.9 g/dl Hematocrit 47.3 % Mean Corpuscular Volume 88.4 FL Mean Corpuscular Hemoglobin 29.6 PG Mean Corpuscular Hemoglobin Concent 33.5 g/dL Red Cell Distribution Width 14.6 % Platelet Count 260 X10'3 Mean Platelet Volume 8.6 FL Neutrophils (%) (Auto) 80.2 % Lymphocytes (%) (Auto) 18.2 % Monocytes (%) (Auto) 1.5 % Eosinophils (%) (Auto) 0 % Basophils (%) (Auto) 0.1 % Neutrophils # (Auto) 14.3 X10'3 Lymphocytes # (Auto) 3.2 X10'3 Monocytes # (Auto) 0.3 X10'3 Eosinophils # (Auto) 0.0 X10'3 Basophils # (Auto) 0.0 X10'3 CBC Comment Sodium Level 141 MMOL/L Potassium Level 4.4 MMOL/L Chloride Level 100 MMOL/L Carbon Dioxide Level 36.7 MMOL/L Anion Gap 4 Blood Urea Nitrogen 36 MG/DL Creatinine 1.05 MG/DL Estimated GFR/1.73 m2 67 ML/MIN BUN/Creatinine Ratio 34.3 Glucose Level 190 MG/DL Calcium Level 9.1 MG/DL Magnesium Level 2.3 MG/DL Total Bilirubin 0.8 MG/DL Aspartate Amino Transf (AST/SGOT) 32 U/L Alanine Aminotransferase (ALT/SGPT) 44 U/L Alkaline Phosphatase 128 IU/L Total Protein 7.6 G/DL Albumin 3.4 G/DL Globulin 4.2 G/DL Albumin/Globulin Ratio 0.8 Chemistry Comments Test 03/31/25 07:47 03/31/25 12:19 Glucometer 207 mg/dl 306 mg/dl Imaging: Echocardiogram: Small LV size with mild concentric hypertrophy. Overall systolic function is mildly reduced. "D" flattened IV septum. LVEF is 50-55%. RV is moderately increased in size with reduced function. Critically elevated right heart pressures with an RVSP of 139 mmHg. The left atrium size is normal. Right atrium is severely dilated. TV appears structurally normal with moderate (3+) regurgitation. Ascending aorta is midly dilated. Normal pericardium. ?Trivial focal effusion around RA without hemodynamic compromise. Lexiscan: 1. Fixed septal defect. No reversible defect. 2. Septal hypokinesis 3. Cardiac EF 57 %. Chest CTA: 1. No evidence of a pulmonary embolism or aneurysm. 2. Right upper and lower lobe peripheral nodular consolidations favored an infectious/inflammatory etiology. 3. Multiple prominent mediastinal nodes favored reactive. Discharge physical exam: Vital Signs Date Time Temp Pulse Resp B/P (MAP) Pulse Ox O2 Delivery O2 Flow Rate FiO2 03/31/25 08:26 82 18 96 Nasal Cannula* 2 28 03/31/25 06:00 97.9 154/80 (104) General: awake, alert oriented to place, time, and person HEENT: No pallor present, no icterus, moist mucous membranes Neck: No masses and tenderness Resp: Unlabored. Clear breath sounds bilaterally Heart: Regular Rate and rhythm, normal S1 and S2 without murmur, rub or gallop Abdomen: Soft and non tender no organomegaly, no guarding and rigidity, bowel sounds present Neuro: No weakness in the upper and lower limb muscles, power of the muscles 5/5 bilateral upper and lower muscles, knee reflex present bilaterally. Cranial nerves intact Extremities: No cyanosis,clubbing or edema Skin: Warm and Dry. No lesions Patient will be discharged home with the following recommendations: Please follow up with your PCP within one week. Discuss referral to pulmonology for pulmonary function tests Discuss with Dr Gray regarding your upcoming heart cath Please take all medications as prescribed Please return to the ED if you experience any increasing shortness of breath, chest pain, palpitations or any other concerning symptoms *Problems/Diagnosis: (1) Shortness of breath Status: Acute (2) Acute exacerbation of congestive heart failure Status: Acute Total Time Spent on D/C: > 30 Minutes Date of Service: March 31, 2025 Billing Provider: CLAYTON MCKEON MD, LEONARDO LUIS March 31, 2025 17:39
== END 2025-03-31 12:40 | disposition home or self-care (01) | DRG 193 ==
LOC: ER 11:25 → ED HOLD 14:57 → PCU 3S 17:52
PROVIDERS: ADMIT Family Medicine; ATTEND Family Medicine
PROC: 4A02XM4 Measurement of Cardiac Total Activity, External Approach (ICD-10-PCS; principal; 2025-03-29)
PROC: 3E033HZ Introduction of Radioactive Substance into Peripheral Vein, Percutaneous Approach (ICD-10-PCS; 2025-03-29)
PROC: B32T1ZZ Computerized Tomography (CT Scan) of Left Pulmonary Artery using Low Osmolar Contrast (ICD-10-PCS; 2025-03-29)
PROC: B3201ZZ Computerized Tomography (CT Scan) of Thoracic Aorta using Low Osmolar Contrast (ICD-10-PCS; 2025-03-29)
PROC: B32S1ZZ Computerized Tomography (CT Scan) of Right Pulmonary Artery using Low Osmolar Contrast (ICD-10-PCS; 2025-03-29)
DX: J15.9 Unspecified bacterial pneumonia (principal); I50.33 Acute on chronic diastolic (congestive) heart failure; J44.0 Chronic obstructive pulmonary disease with (acute) lower respiratory infection; I11.0 Hypertensive heart disease with heart failure; I48.91 Unspecified atrial fibrillation; E11.9 Type 2 diabetes mellitus without complications; G47.33 Obstructive sleep apnea (adult) (pediatric); E78.5 Hyperlipidemia, unspecified; Z88.8 Allergy status to other drugs, medicaments and biological substances; Z79.899 Other long term (current) drug therapy; Z79.01 Long term (current) use of anticoagulants; Z79.84 Long term (current) use of oral hypoglycemic drugs; Z90.49 Acquired absence of other specified parts of digestive tract; Z87.891 Personal history of nicotine dependence
CPT/HCPCS: 36415; 71045; 71275; 78452; 80053; 80061; 81001; 82948; 83036; 83735; 83880; 84145; 84484; 85025; 85610; 85730; 87081; 93005; 93017; 93308; 94660; 94760; 96374; 97116; 97161; 99285; A4615; A9500; G0378; J0456; J0696; J1815; J1938; J1940; J2785; J2919; J7040; Q9967

== ENCOUNTER 2025-04-11 11:01 | Day surgery (SDC) | payer MEDICARE, OTHER ==
[2025-04-11] VITALS (7 sets, daily range): BP systolic 113–138; BP diastolic 63–90; PULSE 74–87; RESP 14–19; TEMP 97.7; O2SAT 96–97
[~2025-04-11] VITALS: Ht 182.9 cm; Wt 94.3 kg
[~2025-04-11 11:01] MED LIST changes: +ALBU2.5V7 NEB; +ATEN-169 PO; -ATEN50TA PO; +ATOR20TA66 PO; -BRIM5DRO6 EACHEYE; +BUDE10.2 INH; +FURO-150 PO; +LOSA50TA64 PO; +PRED10TA23 PO; -VALS160T2 PO; -ZAR2.5T PO
--- NOTE | 2025-04-11 11:32 | ELECTROCARDIOGRAPH REPORT ---
[facility] Test Date: 2025-04-11 Test Time: 11:28:45 Pat Name: LISA RAMOS Department: [facility] Patient ID: [facility]-[id number] Room: Gender: M Outside [employer]: : [phone] Requested By: BETO ISAAC Order Number: [id number] Reading MD: Dr. CAROL Senior Measurements Intervals [place] Rate: 78 P: 0 WI: 0 QRS: 110 QRSD: 106 T: 111 QT: 414 QTc: 472 Interpretive Statements Atrial fibrillation Right ventricular hypertrophy Nonspecific T abnrm, anterolateral leads Baseline wander in lead(s) V5 Electronically Signed On 04-11-2025 17:45:[address] CAROL Senior Please click the below link to view image of tracing.
[2025-04-11] MEDS ORDERED: LORazepam 0.5 MG tablet PO PRN (11:35)
[2025-04-11] MEDS ORDERED: HYDR-3972 PO (12:14)
[2025-04-11] MEDS ORDERED: ATOR40TA72 PO (12:24)
[2025-04-11] MEDS ORDERED: APIX5TAB5 PO (12:24)
[2025-04-11] MEDS ORDERED: ALBU2.5V10 NEB (12:24)
[2025-04-11] MEDS: normal saline 1,000 ML IV SCH (12:26)
[2025-04-11] MEDS: diphenhydrAMINE 25mg capsule PO PRN (12:26)
[2025-04-11] MEDS ORDERED: iohexol 350 MG/ML 50ML vial IV ONE (13:55)
[2025-04-11] MEDS ORDERED: midazolam 1 mg/ML 2ml injection ONE (13:55)
[2025-04-11] MEDS ORDERED: fentaNYL/PF 50MCG/1 ML 2ML syringe ONE (13:55)
[2025-04-11] MEDS ORDERED: LIDOcaine 1% (10mg/ml) 2ml vial ONE (14:09)
[2025-04-11] MEDS ORDERED: HYDROcodone/acetaminophen 5mg/325mg tablet PO PRN (15:30)
[2025-04-11] MEDS ORDERED: HYDROcodone/acetaminophen 10/325mg tab PO PRN (15:30)
[2025-04-12 06:45] LABS: ISTAT HGB MIX 14.6 g/dl (14.0-17.9); ISTAT Hct MIX 43 %PCV (42-52); ISTAT O2 SATURATION MIX VENOUS 57 % (60-80); ISTAT SOURCE VEN
--- NOTE | 2025-04-18 15:43 | CARDIAC CATH REPORT ---
Cardiac Cath Report Providers to CC CC: MIKE ISAAC MD Procedure Comments: 1. Right Heart Catheterization 2. Right Brachial vein access Brief History/Indications: 84yo man with HTN, HLD, Atrial Fibrillation, Pulmonary Hypertension referred for RHC as evaluation Techniques: After informed consent was obtained, the patient was brought to the cardiac catheterization laboratory and prepped and draped in usual sterile fashion for a right heart catheterization and other procedures mentioned above. The right AC fossa was anesthetized with 1% Lidocaine. The right AC IV was exchanged over a wire for an 6fr sheath. Through this, the [place] was advanced to the right atrium, the right ventricle, the pulmonary artery, and wedge position. At the conclusion of the case the sheath was removed and hemostasis obtained with manual compression. Findings Findings: HEMODYNAMICS: RA: 11 mmHg RV: 96/5, RVEDP 1 mmHg PA: 97/35, mPAP 58 mmHg PCWP: 16 mmHg(V-waves up to 28 mmHg) TP mmHg DP mmHg Ao: 131/68, MAP 91 mmHg HR: 80bpm Ao Sat(assumed, off O2): 93% PA Sat: 55% CO/CI(Beto): 3.54/1.64 CO/CI(Thermodilution): 3.97/1.84 Results Results: 1. Mixed pre/post Capillary Pulmonary Hypertension with mPAP 58mmHg, PCWP 16mmHg, TPG 42mmHg DPG 19 mmHg 2. RBV access, closed with manual compression RECOMMENDATIONS: 1. Recommend keeping outpt cards follow-up to discuss txt of pHTN Late entry, date of service was April 11, 2025 BETO ISAAC MD April 18, 2025 15:43
== END 2025-04-11 17:00 | disposition home or self-care (01) ==
LOC: SSTAY O 11:01
PROVIDERS: ATTEND Student in an Organized Health Care Education/Training Program
DX: I27.20 Pulmonary hypertension, unspecified (principal); E78.5 Hyperlipidemia, unspecified; I10 Essential (primary) hypertension; I48.91 Unspecified atrial fibrillation; E11.9 Type 2 diabetes mellitus without complications; Z85.828 Personal history of other malignant neoplasm of skin; Z88.8 Allergy status to other drugs, medicaments and biological substances; Z79.899 Other long term (current) drug therapy; Z98.890 Other specified postprocedural states
CPT/HCPCS: 82803; 82948; 85014; 93005; 93451; 99152; C1751; C1769; J1644; J2003; J2250; J3010; J7030; Q0163; Z7610; 99153; Q9967